=== PATIENT | female | born 1990 | race Caucasian/White ===

== ENCOUNTER 2020-10-10 16:58 | Emergency (ER) | payer MEDICAID, SELFPAY ==
[2020-10-10 17:02] VITALS: RESP 18; TEMP 36.7; O2SAT 100; BMI 32.4
[2020-10-10 17:06] VITALS: BP 146/80; PULSE 67
[2020-10-10] MEDS: 0.9 % Sodium Chloride 1,000 ML 1000 ML IV (18:31)
[2020-10-10] MEDS: ondansetron HCL 4 MG/2 ML VIAL IVPUSH ×2 (18:31→22:56)
[2020-10-10 18:42] VITALS: BP 144/77; PULSE 53; RESP 15; TEMP 37.3; O2SAT 99
[2020-10-10 18:50] LABS: MANUAL DIFF FLAG NO
[2020-10-10 18:57] LABS: Basophils Percent Auto 0.1 % (0-2); Hematocrit 42.7 % (37-47); Hemoglobin 15.6 g/dl (12.0-16.0); Imm Gran Abs Auto 0.06 X10*3/uL (0.00-0.03); Imm Gran Pct Auto 0.4 % (0.0-0.4); Lymphocytes Absolute Auto 1.9 X10*3/uL (1.2-4.9); Lymphocytes Percent Auto 13.4 % (20-40); Mean Corpuscular HGB Conc 36.5 g/dl (31.0-35.0); Mean Corpuscular Hemoglobin 31.6 pg (27.0-33.0); Mean Corpuscular Volume 86.4 fL (80-98); Mean Platelet Volume 9.6 fL (9.4-12.3); Monocytes Absolute Auto 0.6 X10*3/uL (0.1-1.2); Monocytes Percent Auto 4.5 % (2-11); Neutrophils Absolute Auto 11.5 X10*3/uL (2.0-8.3); Neutrophils Percent Auto 81.6 % (45-73); Platelet Count 376 X10*3/uL (160-400); Red Blood Count 4.94 X10*6/uL (4.20-5.50); Red Cell Distribution Width 11.8 % (11.0-16.0); White Blood Count 14.1 X10*3/uL (4.8-10.8)
[2020-10-10 19:13] LABS: Lactic Acid 1.1 mmol/L (0.5-2.0)
[2020-10-10 19:18] LABS: Alanine Aminotransferase 18 U/L (0-31); Albumin Level 4.8 g/dL (3.5-5.0); Alkaline Phosphatase 101 U/L (39-117); Anion Gap 17 (12-20); Aspartate Amino Transferase 11 U/L (5-31); Bilirubin Total 0.7 mg/dL (0.0-1.0); Blood Urea Nitrogen 19 mg/dL (9-16); Calcium 9.2 mg/dL (8.4-10.2); Carbon Dioxide 23 mmol/L (22-29); Chloride 105 mmol/L (96-108); Creatinine Clr Calc Pharmacy 66.2; Estimated Glomerular Filt Rate > 60; Glucose Random 105 mg/dL (60-115); Potassium 3.3 mmol/l (3.3-5.1); Sodium 142 mmol/L (135-145); Total Protein 8.3 g/dL (6.5-8.0)
--- NOTE | 2020-10-10 19:22 | CT_ITS ---
EXAMINATION: CT ABDOMEN AND PELVIS WITH CONTRAST CLINICAL INFORMATION: Abdominal pain. COMPARISON: CT abdomen and pelvis 12/02/2013. TECHNIQUE: Multidetector volumetric images were obtained from the superior aspect of the liver through the pubic symphysis following administration 85 mL of Omnipaque 350 intravenous contrast. Sagittal and coronal reformatted images were obtained on the technologist's workstation. Oral Contrast: No. This CT examination was performed using dose optimization techniques as appropriate, variously including the following: *Automated exposure control. *Adjustment of mA and/or kV according to patient size (this includes techniques or standardized protocols for targeted exams where dose is matched to indication/reason for exam; i.e. extremities or head). *Use of iterative reconstruction technique. DLP: 437 mGy-cm FINDINGS: LUNG BASES: The visualized lung bases are unremarkable. LIVER, GALLBLADDER, AND BILIARY TREE: The liver is normal in size, shape, and attenuation. No focal hepatic lesion or biliary ductal dilatation is present. The gallbladder is unremarkable with no evidence of radiopaque gallstones, gallbladder wall thickening, or obvious pericholecystic inflammatory changes. PANCREAS: Unremarkable. SPLEEN: Unremarkable. ADRENAL GLANDS: Unremarkable. KIDNEYS AND URETERS: The kidneys are normal in size, shape, and attenuation. No hydronephrosis, hydroureter, or calculi seen. No perinephric stranding. BLADDER: Empty and cannot be evaluated. GASTROINTESTINAL TRACT: Diverticular changes are present in the colon without evidence of diverticulitis. There is some submucosal fat deposition in the left and transverse colon which can sometimes be seen with prior colitis but this is a nonspecific finding. There is some minimally prominent loops of small bowel in the mid abdomen measuring only 2.6 cm in diameter without evidence of obstruction. The small and large bowel otherwise are unremarkable. The appendix is unremarkable. ABDOMINAL WALL: No significant hernia is appreciated. LYMPH NODES: Normal. VASCULAR: Unremarkable. The previously noted refluxing ovarian veins seen 6 years ago are smaller without significant reflux. PELVIC VISCERA: An anteverted uterus is present. An abnormal adnexal mass or free intraperitoneal fluid is not seen. OSSEOUS STRUCTURES: Unremarkable. CT/CT abdomen pelvis w con IMPRESSION: 1. A convincing abnormality to account for the patient's abdominal pain is not seen with certainty. There is some minimal dilatation of proximal small bowel which could be secondary to mild ileus. Submucosal fat deposition in colon is a non-specific finding as described above. Recommend clinical follow up and further evaluation, if symptoms worsen. 2. Incidentally noted colonic diverticula without diverticulitis.
[2020-10-10] MEDS: Acetaminophen 325 MG TABLET 975 MG PO (19:45)
--- NOTE | 2020-10-10 19:46 | PC.NURSE ---
Report taken from Ivan, this RN resuming care. Pt medicated with Tylenol per request for a DILLARD. Pt aware of UA but states she is unable to provide urine sample at this time, pt refusing to go to the bathroom, turning away from this RN in bed to sleep. VSS. Continue to monitor.
[2020-10-10 19:48] LABS: Influenza A PCR NEGATIVE (Negative); Influenza B PCR NEGATIVE (Negative); Resp Syncy Virus RNA Qual PCR NEGATIVE (Negative); SARS COV2 PCR INHOUSE NEGATIVE (Negative)
[2020-10-10 20:00] VITALS: BP 128/58; PULSE 58; RESP 16; TEMP 37.5; O2SAT 99
[2020-10-10 20:54] LABS: Glucose Urine UA NEG (NEG); Leukocyte Esterase Urine NEG (NEG); Nitrite Urine NEG (NEG); Specific Gravity - Urine >= 1.030 (1.005-1.025); Urine Blood 3+ (NEG); Urine Ketones 15 MG/DL (NEG); Urine Protein 2+ MG/DL (NEG-TRACE)
[2020-10-10 20:56] LABS: Appearance Urine CLEAR; Color Urine YELLOW
--- NOTE | 2020-10-10 20:57 | ED.NAVMDI ---
HPI - Nausea/Vomiting/Diarrhea General Chief complaint: Nausea/Vomiting/Diarrhea Stated complaint: flu like symptoms Time Seen by Provider: 10/10/20 17:11 Source: EMS Mode of arrival: EMS Limitations: no limitations History of Present Illness HPI Narrative: 30-year-old female with history of asthma, bipolar disorder and PTSD who presents via EMS with complaint of body aches for the past 2 days and abdominal pain with nausea and vomiting. States she is currently taking doxycycline for superficial skin infection her right axilla and right breast area that was given by her primary care doctor and she has been taking this well. Reports some rhinorrhea and diffuse abdominal pain with the associated nausea and vomiting. No sick contacts or travel. She does report to me that she had a negative COVID test 3 days ago. MD elicited complaint: nausea, vomiting, diarrhea and abdominal pain Description of diarrhea: loose Associated nausea: Yes Associated abdominal pain: Yes Location of pain: diffuse Radiation: diffuse Pain consistency: intermittent Severity: moderate Quality: cramping Relieving factors: none Associated symptoms: denies other symptoms Treatment prior to arrival: none Related Data Allergies Allergy/AdvReac Type Severity Reaction Status Date / Time aspirin [ASPIRIN] AdvReac Mild STOMACH Unverified 08/02/20 15:45 UPSET From COMPAZINE Allergy Unknown AGITATION Uncoded 08/02/20 15:45 Review of Systems Review of Systems: Constitutional: No Weight loss, No Fever, + Chills, No Night Sweats, No Fatigue, No Malaise ENT/Mouth: No Hearing loss, No Ear Pain, No Nasal Congestion, No Sinus Pain, No Hoarseness, No sore throat, No Rhinorrhea, No Swallowing Difficulty Eyes: No Eye Pain, No Swelling, No Redness, No Foreign Body, No Discharge, No Vision Changes Cardiovascular: No Chest Pain, No SOB, No Dyspnea on Exertion, No Orthopnea, No Edema, No Palpitations Respiratory: No Cough, No Sputum, No Wheezing, No Smoke Exposure, No Dyspnea Gastrointestinal: + Nausea, + Vomiting, + Diarrhea, No Constipation, + abdominal Pain, No Hematochezia, No Melena Genitourinary: no irregular bleeding, No Dysuria, No Urinary Frequency, No Hematuria, No Urinary Incontinence, No Urgency, No Flank Pain, No Urinary Flow Changes, No Hesitancy Musculoskeletal: No joint pain, No Myalgias, No Joint Swelling Skin: No Skin Lesions, No rash Neuro: No Weakness, No Numbness, No Paresthesias, No Loss of Consciousness, No Dizziness, No Headache Psych: No Social Issues Heme/Lymph: No Bruising, No Bleeding,No Lymphadenopathy Endocrine: No Polyuria, No Polydipsia, No Temperature Intolerance Gastrointestinal: Gastrointestinal: Reports nausea PMFSH Past Medical History Medical History Skin cancer Social History Social History Alcohol intake: unknown Smoking Status: Never smoker Use of substances other than those prescribed or required for medical reasons: No Advance Directives: No Advance Directives Information Provided: Yes Physical Exam Vital Signs: Vital Signs: Last Vital Signs Temp 99.5 F 10/10/20 20:00 Pulse 58 10/10/20 20:00 Resp 16 10/10/20 20:00 BP 128/58 L 10/10/20 20:00 Pulse Ox 99 10/10/20 20:00 Body Mass Index 32.4 Reviewed Const: General: cooperative and healthy appearing; No acute distress or intoxicated appearing Nutritional Appearance: average body habitus Orientation/consciousness: patient oriented x3 HENMT: Head: Yes normal to inspection Ears: hearing grossly normal bilaterally Eyes: General: appearance normal, both eyes and all related structures Visual [place]: normal visual zurita by confrontation Neck: Neck: Yes normal visual inspection and No tender Thyroid: Thyroid normal Chest: Chest palpation & inspection: normal inspection of the chest Resp: Effort & Inspection: normal respiratory effort Cardio: Jugular venous distension: no JVD GI: Inspection: Yes normal to inspection Percussion: Yes normal to percussion Auscultation: normal bowel sounds : General: Yes no CVA tenderness Back/Spine/Pelvis: Back: no CVA tenderness Skin: General skin exam: no rashes or lesions noted Neuro: General: patient oriented x3 Extrem: General: Yes normal to inspection MDM - Nausea/Vomiting/Diarrhea MDM Narrative Medical decision making narrative: Sign-out this time pending UA, abdominal CT. Anticipated to be discharged home. Differential Diagnosis Differential diagnosis: Likely food poisoning, gastroenteritis, drug-induced nausea and vomiting and dehydration; Unlikely traveler's diarrhea and clostridium difficile infection Medical Records Attestation: I reviewed the patient's medical records. Lab Data Attestation: I reviewed the patient's lab results. Result diagrams: 10/10/20 18:35 10/10/20 18:35 Labs: Lab Results 10/10/20 10/10/20 10/10/20 Range/Units 18:35 18:35 18:35 WBC 14.1 H (4.8-10.8) X10*3/uL RBC 4.94 (4.20-5.50) X10*6/uL Hgb 15.6 (12.0-16.0) g/dl Hct 42.7 (37-47) % MCV 86.4 (80-98) fL MCH 31.6 (27.0-33.0) pg MCHC 36.5 H (31.0-35.0) g/dl RDW 11.8 (11.0-16.0) % Plt Count 376 (160-400) X10*3/uL MPV 9.6 (9.4-12.3) fL Immature Gran % (Auto) 0.4 (0.0-0.4) % Neut % (Auto) 81.6 H (45-73) % Lymph % (Auto) 13.4 L (20-40) % [place] % (Auto) 4.5 (2-11) % Eos % (Auto) 0.0 (0-4) % Baso % (Auto) 0.1 (0-2) % Lymph # (Auto) 1.9 (1.2-4.9) X10*3/uL [place] # (Auto) 0.6 (0.1-1.2) X10*3/uL Eos # (Auto) 0.0 (0.0-0.4) X10*3/uL Baso # (Auto) 0.0 (0.0-0.2) X10*3/uL Abs Immat Gran (auto) 0.06 H (0.00-0.03) X10*3/uL Absolute Neuts (auto) 11.5 H (2.0-8.3) X10*3/uL Absolute Nucleated RBC 0.000 (0.0-0.012) X10*3/uL Nucleated RBC % (auto) 0.0 (0.0-0.2) /100WBC Sodium 142 (135-145) mmol/L Potassium 3.3 (3.3-5.1) mmol/l Chloride 105 (96-108) mmol/L Carbon Dioxide 23 (22-29) mmol/L Anion Gap 17 (12-20) BUN 19 H (9-16) mg/dL Creatinine 0.97 (0.5-1.4) mg/dL Estim Creat Clear Calc 66.2 Estimated GFR > 60 Random Glucose 105 (60-115) mg/dL Lactic Acid (0.5-2.0) mmol/L Calcium 9.2 (8.4-10.2) mg/dL Total Bilirubin 0.7 (0.0-1.0) mg/dL AST 11 (5-31) U/L ALT 18 (0-31) U/L Alkaline Phosphatase 101 (39-117) U/L Total Protein 8.3 H (6.5-8.0) g/dL Albumin 4.8 (3.5-5.0) g/dL Urine Color Urine Appearance Urine pH (5.0-8.0) Ur Specific [place] (1.005-1.025) Urine Protein (NEG-TRACE) MG/DL Urine Glucose (UA) (NEG) MG/DL Urine Ketones (NEG) MG/DL Urine Blood (NEG) Urine Nitrite (NEG) Ur Leukocyte Esterase (NEG) Coronavirus (PCR) NEGATIVE (Negative) Influenza Type A (PCR) NEGATIVE (Negative) Influenza Type B (PCR) NEGATIVE (Negative) RSV RNA Qual (PCR) NEGATIVE (Negative) 10/10/20 10/10/20 Range/Units 18:35 20:45 WBC (4.8-10.8) X10*3/uL RBC (4.20-5.50) X10*6/uL Hgb (12.0-16.0) g/dl Hct (37-47) % MCV (80-98) fL MCH (27.0-33.0) pg MCHC (31.0-35.0) g/dl RDW (11.0-16.0) % Plt Count (160-400) X10*3/uL MPV (9.4-12.3) fL Immature Gran % (Auto) (0.0-0.4) % Neut % (Auto) (45-73) % Lymph % (Auto) (20-40) % [place] % (Auto) (2-11) % Eos % (Auto) (0-4) % Baso % (Auto) (0-2) % Lymph # (Auto) (1.2-4.9) X10*3/uL [place] # (Auto) (0.1-1.2) X10*3/uL Eos # (Auto) (0.0-0.4) X10*3/uL Baso # (Auto) (0.0-0.2) X10*3/uL Abs Immat Gran (auto) (0.00-0.03) X10*3/uL Absolute Neuts (auto) (2.0-8.3) X10*3/uL Absolute Nucleated RBC (0.0-0.012) X10*3/uL Nucleated RBC % (auto) (0.0-0.2) /100WBC Sodium (135-145) mmol/L Potassium (3.3-5.1) mmol/l Chloride (96-108) mmol/L Carbon Dioxide (22-29) mmol/L Anion Gap (12-20) BUN (9-16) mg/dL Creatinine (0.5-1.4) mg/dL Estim Creat Clear Calc Estimated GFR Random Glucose (60-115) mg/dL Lactic Acid 1.1 (0.5-2.0) mmol/L Calcium (8.4-10.2) mg/dL Total Bilirubin (0.0-1.0) mg/dL AST (5-31) U/L ALT (0-31) U/L Alkaline Phosphatase (39-117) U/L Total Protein (6.5-8.0) g/dL Albumin (3.5-5.0) g/dL Urine Color YELLOW Urine Appearance CLEAR Urine pH 6.0 (5.0-8.0) Ur Specific [place] >= 1.030 H (1.005-1.025) Urine Protein 2+ H (NEG-TRACE) MG/DL Urine Glucose (UA) NEG (NEG) MG/DL Urine Ketones 15 (NEG) MG/DL Urine Blood 3+ H (NEG) Urine Nitrite NEG (NEG) Ur Leukocyte Esterase NEG (NEG) Coronavirus (PCR) (Negative) Influenza Type A (PCR) (Negative) Influenza Type B (PCR) (Negative) RSV RNA Qual (PCR) (Negative)
[2020-10-10 21:04] LABS: UPreg QC Valid YES; Urine Pregnancy NEGATIVE (NEGATIVE)
--- NOTE | 2020-10-10 21:07 | PC.NURSE ---
Pt continuously refusing to provide UA, pt states I am not , I had my tubes tied and I have my period right now. This RN explaining to pt that she was unable to have a CT until she provided a UA. Pt ambulating to the bathroom with a tomlinson/steady gait, needing to be constantly reminded to wear a mask while in the Covid unit. Awaiting CT.
[2020-10-10 21:10] LABS: Mucus Urine 2+ /LPF; WBC Urine 0-2 /HPF (0-4)
[2020-10-10] MEDS: iohexoL 350 MG/ML 100 ML INFUS..BTL IV (21:31)
[2020-10-10 22:00] VITALS: BP 133/69; PULSE 58; RESP 16; TEMP 37.5; O2SAT 99
--- NOTE | 2020-10-10 22:17 | PC.NURSE ---
Pt sleeping in bed at this time, aware of plan to await CT results.
[2020-10-10 22:32] VITALS: RESP 16
--- NOTE | 2020-10-10 22:49 | PC.NURSE ---
Pt calling this RN into the room, holding emesis bag out with vomit. Pt requesting nausea medication. PARBOILER aware, plan for DC home.
--- NOTE | 2020-10-10 22:56 | PC.NURSE ---
Pt medicated with Zofran per EMAR. Pt requesting medication to be discharged with for insomnia. Awaiting VP OF PRODUCT to explain results and plan of care.
--- NOTE | 2020-10-10 23:17 | PC.NURSE ---
SCRAP CRANE OPERATOR at bedside explaining results and plan to DC home.
--- NOTE | 2020-10-10 23:32 | PC.NURSE ---
Pt aware of plan, awaiting PA to consult with Dr Leal.
== END 2020-10-11 00:11 | disposition home or self-care (01) ==
PROVIDERS: Nurse Practitioner Primary Care; Emergency Provider Emergency Medicine
DX: F31.9 Bipolar disorder, unspecified (principal); Z20.828 Contact with and (suspected) exposure to other viral communicable diseases
CPT/HCPCS: 0241U; 36415; 74177; 80053; 81001; 81025; 83605; 85025; 87040; 87147; 96361; 96374; 96376; 99284; J2405; Q9967

== ENCOUNTER 2020-10-11 17:23 | Emergency (ER) | payer MEDICAID, SELFPAY ==
[2020-10-11 17:30] VITALS: BP 120/67; BP 120/85; PULSE 50; PULSE 55; RESP 18; TEMP 36.8; O2SAT 97; O2SAT 99; BMI 32.4
--- NOTE | 2020-10-11 17:43 | ED_ITS ---
HPI - Abdominal Pain General Chief Complaint: Abdominal Pain Stated Complaint: ABD PAIN,N/V,BLOOD IN STOOL Time Seen by Provider: 10/11/20 17:49 Source: patient Mode of arrival: EMS Limitations: no limitations History of Present Illness HPI narrative: Patient presents to the ED for abdominal pain, nausea, vomiting , and now blood in stool. Patient was seen here yesterday and CT scan showed possible ileus. Patient was informed if symptoms worsen to return to the ED. Patient states when she came to the ED yesterday did not have blood in stool, but now is having blood in stool. Patient denies any recent trauma to the abdomen, back, rectal, or pelvic area. Related Data Previous Rx's Medication Instructions Recorded diphenhydramine HCl [Allergy 25 mg PO TID PRN #30 cap 10/10/20 (diphenhydramine)] ciprofloxacin HCl [Cipro] 500 mg PO Q12H #14 tab 10/11/20 metronidazole 500 mg PO Q12H #14 tab 10/11/20 oxycodone-acetaminophen [Percocet] 1 tab PO TID PRN #9 tab 10/11/20 Allergies Allergy/AdvReac Type Severity Reaction Status Date / Time aspirin [ASPIRIN] AdvReac Mild STOMACH Verified 10/11/20 19:17 UPSET From COMPAZINE Allergy Unknown AGITATION Uncoded 10/11/20 19:18 Review of Systems Review of Systems Yes all other systems are reviewed and are negative Constitutional: Reports as per HPI and Reports no additional constitutional complaints Eyes: Reports as per HPI and Reports no additional eye complaints Reports system reviewed and no additional complaints, except as documented and Reports as per HPI Cardiovascular: Reports as per HPI and Reports no additional cardiovascular complaints Respiratory: Reports as per HPI and Reports no additional respiratory complaints Gastrointestinal: Reports no additional gastrointestinal complaints, Reports abdominal pain, Reports hematochezia, Reports nausea and Reports vomiting Genitourinary: Reports no additional female genitourinary complaints and Reports as per HPI Musculoskeletal: Reports no additional musculoskeletal complaints and Reports as per HPI Reports system reviewed and no additional complaints, except as documented and Reports as per HPI Psychiatric: Reports no additional psychiatric complaints and Reports as per HPI Physical Exam Vital Signs: Vital Signs: Last Vital Signs Temp 98.4 F 10/11/20 21:05 Pulse 55 10/11/20 21:05 Resp 15 10/11/20 21:50 BP 134/70 10/11/20 21:05 Pulse Ox 98 10/11/20 21:05 Body Mass Index 32.4 Const: General: cooperative, healthy appearing, well developed, alert, awake and acute distress Orientation/consciousness: patient oriented x3 HENMT: Head: Yes normal to inspection and Yes No palpable skull fracture present Eyes: General: appearance normal, both eyes and all related structures Neck: Neck: Yes normal visual inspection, Yes full ROM, Yes no lymphadenopathy, Yes no meningeal signs, Yes trachea midline, Yes supple and No tender Chest: Chest palpation & inspection: normal inspection of the chest, normal palpation of entire chest wall and no localized rib tenderness Resp: Effort & Inspection: normal respiratory effort and able to speak in complete sentences Auscultation: clear to auscultation bilaterally Cardio: Jugular venous distension: no JVD Heart sounds: S1 normal heart sound present and S2 normal heart sound present GI: Other: Rectal exam negative for any atul blood. Stool is brown Inspection: Yes normal to inspection, No abdominal wall ecchymosis, No Abdominal wall edema, No distended, No incision, No Abdominal panniculus present and No obesity Palpation (GI): Soft to palpation, not firm, Tenderness to palpation present (GI) in the LLQ and in the RLQ, no guarding and not rigid : General: No CVA tenderness and Yes no CVA tenderness Back/Spine/Pelvis: Back: no CVA tenderness, No CVA tenderness and No back tenderness Skin: General skin exam: no rashes or lesions noted Neuro: General: patient oriented x3, gait normal, no meningeal signs and CN's II-XI intact bilaterally Cranial nerves: Yes CN's II-XII intact bilaterally Extrem: General: Yes normal to inspection and Yes full ROM Psych: Appearance: grossly normal, well kempt and not disheveled Course Course Course Narrative: patient will have repeat of labs and also stool guaiac done. Patient also given pain medication and IV fluids. Due to now a change in stooling blood this may indicate colitis. Patient may need repeat CT scan. Possibly contacts surgeon on-call. Reevaluation(s) Reevaluation #1: stool guaiac came back positive. Patient abdomen is tender on palpation. Due to patient having worsening abdominal pain with blood in stool patient will have repeat CT scan to make sure there is no colitis, perforation, on small-bowel obstruction. consent was signed by me to have patient have repeat CT scan even though she had 1 yesterday, but once again due to change in history, symptoms, worsening abdominal pain. CT scan is warranted. Patient ziyad l be given IV fluids after CT scan. Time: 19:23 Reevaluation #2: CT scan shows Crohn's and also colitis. Patient will need ant ibiotics. Patient does not need admission. Patient is not septic. Received call from lab states patient's blood culture from yesterday came back Gram- positive cocci which is most likely contaminated staff, pending 2nd blood culture reading. patient is not toxic appearing. Patient or blood cell count improved from day before. Patient's potassium 2.9. Will give 60 mg oral and 10 mg IV. Time: 20:33 Reevaluation #3: spoke with hospitalist Dr. henderson concerning patient's positive gram positive clusters 1st blood culture and she states patient does not need to be admitted and can be discharged. And 2nd blood culture could be followed. She states patient presently is not septic. Checking potassium ordered. Time: 21:23 Additional Reevaluation(s): patient's repeat potassium improved. Patient is safe for discharge. MDM - Abdominal Pain MDM Narrative Medical decision making narrative: colitis. Lab Data Result diagrams: 10/11/20 17:52 10/11/20 21:31 Labs: Lab Results 10/11/20 10/11/20 10/11/20 Range/Units 17:52 17:52 17:52 WBC 12.7 H (4.8-10.8) X10*3/uL RBC 4.57 (4.20-5.50) X10*6/uL Hgb 14.5 (12.0-16.0) g/dl Hct 39.6 (37-47) % MCV 86.7 (80-98) fL MCH 31.7 (27.0-33.0) pg MCHC 36.6 H (31.0-35.0) g/dl RDW 11.9 (11.0-16.0) % Plt Count 338 (160-400) X10*3/uL MPV 8.9 L (9.4-12.3) fL Immature Gran % (Auto) 0.2 (0.0-0.4) % Neut % (Auto) 69.8 (45-73) % Lymph % (Auto) 23.4 (20-40) % [place] % (Auto) 6.3 (2-11) % Eos % (Auto) 0.1 (0-4) % Baso % (Auto) 0.2 (0-2) % Lymph # (Auto) 3.0 (1.2-4.9) X10*3/uL [place] # (Auto) 0.8 (0.1-1.2) X10*3/uL Eos # (Auto) 0.0 (0.0-0.4) X10*3/uL Baso # (Auto) 0.0 (0.0-0.2) X10*3/uL Abs Immat Gran (auto) 0.03 (0.00-0.03) X10*3/uL Absolute Neuts (auto) 8.9 H (2.0-8.3) X10*3/uL Absolute Nucleated RBC 0.000 (0.0-0.012) X10*3/uL Nucleated RBC % (auto) 0.0 (0.0-0.2) /100WBC PT 15.6 H (10.8-13.0) SEC INR 1.3 H (0.9-1.1) APTT 41.5 H (24.1-38.0) SEC Sodium 139 (135-145) mmol/L Potassium 2.9 L (3.3-5.1) mmol/l Chloride 99 (96-108) mmol/L Carbon Dioxide 28 (22-29) mmol/L Anion Gap 15 (12-20) BUN 15 (9-16) mg/dL Creatinine 0.93 (0.5-1.4) mg/dL Estim Creat Clear Calc 69.0 Estimated GFR > 60 Random Glucose 98 (60-115) mg/dL Calcium 9.6 (8.4-10.2) mg/dL Total Bilirubin 1.0 (0.0-1.0) mg/dL Direct Bilirubin 0.4 (0.0-0.5) mg/dL AST 11 (5-31) U/L ALT 15 (0-31) U/L Alkaline Phosphatase 88 (39-117) U/L Total Protein 7.5 (6.5-8.0) g/dL Albumin 4.5 (3.5-5.0) g/dL Lipase 25 (8-78) U/L Beta HCG, Quant < 2 mIU/mL Stool Occult Blood (NEG) 10/11/20 10/11/20 Range/Units 17:56 21:31 WBC (4.8-10.8) X10*3/uL RBC (4.20-5.50) X10*6/uL Hgb (12.0-16.0) g/dl Hct (37-47) % MCV (80-98) fL MCH (27.0-33.0) pg MCHC (31.0-35.0) g/dl RDW (11.0-16.0) % Plt Count (160-400) X10*3/uL MPV (9.4-12.3) fL Immature Gran % (Auto) (0.0-0.4) % Neut % (Auto) (45-73) % Lymph % (Auto) (20-40) % [place] % (Auto) (2-11) % Eos % (Auto) (0-4) % Baso % (Auto) (0-2) % Lymph # (Auto) (1.2-4.9) X10*3/uL [place] # (Auto) (0.1-1.2) X10*3/uL Eos # (Auto) (0.0-0.4) X10*3/uL Baso # (Auto) (0.0-0.2) X10*3/uL Abs Immat Gran (auto) (0.00-0.03) X10*3/uL Absolute Neuts (auto) (2.0-8.3) X10*3/uL Absolute Nucleated RBC (0.0-0.012) X10*3/uL Nucleated RBC % (auto) (0.0-0.2) /100WBC PT (10.8-13.0) SEC INR (0.9-1.1) APTT (24.1-38.0) SEC Sodium (135-145) mmol/L Potassium 3.7 D (3.3-5.1) mmol/l Chloride (96-108) mmol/L Carbon Dioxide (22-29) mmol/L Anion Gap (12-20) BUN (9-16) mg/dL Creatinine (0.5-1.4) mg/dL Estim Creat Clear Calc Estimated GFR Random Glucose (60-115) mg/dL Calcium (8.4-10.2) mg/dL Total Bilirubin (0.0-1.0) mg/dL Direct Bilirubin (0.0-0.5) mg/dL AST (5-31) U/L ALT (0-31) U/L Alkaline Phosphatase (39-117) U/L Total Protein (6.5-8.0) g/dL Albumin (3.5-5.0) g/dL Lipase (8-78) U/L Beta HCG, Quant mIU/mL Stool Occult Blood POS (NEG) Discharge Plan Discharge Clinical Impression: Colitis Patient Disposition: Home, Self-Care Instructions: Colitis (ED) Additional Instructions: Return to the ED for worsening abdominal pain, nausea, vomiting, fever, chills, blood in stool, or any other concerning symptoms. Prescriptions: New ciprofloxacin HCl [Cipro] 500 mg tablet 500 mg PO Q12H Qty: 14 RF: 0 metronidazole 500 mg tablet 500 mg PO Q12H Qty: 14 RF: 0 oxycodone-acetaminophen [Percocet] 5-325 mg tablet 1 tab PO TID PRN (Reason: pain) Qty: 9 RF: 0 No Action diphenhydramine HCl [Allergy (diphenhydramine)] 25 mg capsule 25 mg PO TID PRN (Reason: sleep) Qty: 30 RF: 0 Referrals: Antonio Bailey [Physician] - 2 days ( CT scan shows possible Crohn's.) Interventions: ED Discharge Assessment Last Done: 10/11/20 23:30 Discharge Date/Time: 10/11/20 23:31 Print Language: Mongolian [facility] Past Medical History Medical History Skin cancer Social History Social History Alcohol intake: never Smoking Status: Never smoker Use of substances other than those prescribed or required for medical reasons: Yes Substance Use Type: Marijuana Substance Use Frequency: Occasionally Advance Directives: No Advance Directives Information Provided: Yes
[2020-10-11] MEDS: 0.9 % Sodium Chloride 1,000 ML 999 ML IVCONT ×3 (17:53→21:54)
[2020-10-11 17:57] LABS: Basophils Percent Auto 0.2 % (0-2); Eosinophils Percent Auto 0.1 % (0-4); Hematocrit 39.6 % (37-47); Hemoglobin 14.5 g/dl (12.0-16.0); Imm Gran Abs Auto 0.03 X10*3/uL (0.00-0.03); Imm Gran Pct Auto 0.2 % (0.0-0.4); Lymphocytes Percent Auto 23.4 % (20-40); MANUAL DIFF FLAG NO; Mean Corpuscular HGB Conc 36.6 g/dl (31.0-35.0); Mean Corpuscular Hemoglobin 31.7 pg (27.0-33.0); Mean Corpuscular Volume 86.7 fL (80-98); Mean Platelet Volume 8.9 fL (9.4-12.3); Monocytes Absolute Auto 0.8 X10*3/uL (0.1-1.2); Monocytes Percent Auto 6.3 % (2-11); Neutrophils Absolute Auto 8.9 X10*3/uL (2.0-8.3); Neutrophils Percent Auto 69.8 % (45-73); Platelet Count 338 X10*3/uL (160-400); Red Blood Count 4.57 X10*6/uL (4.20-5.50); Red Cell Distribution Width 11.9 % (11.0-16.0); White Blood Count 12.7 X10*3/uL (4.8-10.8)
[2020-10-11] MEDS: Morphine Sulfate 2 MG/ML CARTRIDGE IVPUSH (17:57)
[2020-10-11 18:02] LABS: INTERNATIONAL NORM RATIO 1.3 (0.9-1.1); Prothrombin Time 15.6 SEC (10.8-13.0)
[2020-10-11 18:03] LABS: OBS Int Ctl Valid YES; OBS1 POS (NEG)
[2020-10-11 18:05] LABS: Partial Thromboplastin Time 41.5 SEC (24.1-38.0)
[2020-10-11 18:26] LABS: Alanine Aminotransferase 15 U/L (0-31); Albumin Level 4.5 g/dL (3.5-5.0); Alkaline Phosphatase 88 U/L (39-117); Anion Gap 15 (12-20); Aspartate Amino Transferase 11 U/L (5-31); Bilirubin Direct 0.4 mg/dL (0.0-0.5); Blood Urea Nitrogen 15 mg/dL (9-16); Calcium 9.6 mg/dL (8.4-10.2); Carbon Dioxide 28 mmol/L (22-29); Chloride 99 mmol/L (96-108); Estimated Glomerular Filt Rate > 60; Glucose Random 98 mg/dL (60-115); Lipase 25 U/L (8-78); Potassium 2.9 mmol/l (3.3-5.1); Sodium 139 mmol/L (135-145); Total Protein 7.5 g/dL (6.5-8.0)
[2020-10-11 18:28] LABS: HCG Quantitative < 2 mIU/mL
--- NOTE | 2020-10-11 19:07 | CT_ITS ---
EXAMINATION: CT abdomen pelvis w con CLINICAL INFORMATION: Reason for Exam abdominal pain. now blood is stool. colitis? Obstruction? COMPARISON: No prior CT available for comparison. TECHNIQUE: Multidetector volumetric imaging was performed from the superior aspect of the liver through the pubic symphysis 85 mL Omnipaque 350 injected. Sagittal and coronal reformatted images were obtained on the technologist's workstation. This CT examination was performed using dose optimization techniques as appropriate, variously including the following: *Automated exposure control *Adjustment of mA and/or kV according to patient size (this includes techniques or standardized protocols for targeted exams where dose is matched to indication/reason for exam; i.e. extremities or head) *Use of iterative reconstruction technique DLP: 1385 mGy-cm FINDINGS: LOWER THORAX: Included lung bases are clear. HEPATOBILIARY: No focal hepatic lesions. No biliary ductal dilatation. GALLBLADDER: Gallbladder unremarkable. SPLEEN: Spleen is normal in size. PANCREAS: No focal mass or ductal dilatation. STOMACH AND GASTROINTESTINAL TRACT: Stomach is grossly unremarkable. There is mild diffuse wall thickening of the renal: The attenuation of which is low, this is nonspecific however could be a sequela diffuse inflammation such as colitis. No CT evidence of appendicitis. No evidence of obstruction. There is however multiple short segments of small bowel which seem to be borderline dilated transitioning to normal diameter mid abdomen lower pelvis, refer image 59 series of 3, this is nonspecific however raise the possibility of inflammatory bowel disease Crohn's., ADRENALS: No adrenal nodules. KIDNEYS/URETERS: No hydronephrosis, stones or solid mass lesions. URINARY BLADDER: Partially decompressed. PELVIC VISCERA: Unremarkable PERITONEUM: No free air or fluid. LYMPH NODES: No lymphadenopathy. VASCULAR:Abdominal aorta normal in size, no aneurysm found. BONES, ABDOMINAL WALL AND SOFT TISSUES: Age-appropriate changes of the spine and skeletal system, no destructive osteolytic or osteosclerotic bone lesion found CT/CT abdomen pelvis w con IMPRESSION: There are few segments of small bowel which are borderline dilated followed by abrupt transition to normal diameter, Maria image, although nonspecific, this raise the possibility of inflammatory bowel disease Crohn's. There is also mild diffuse wall thickening of the colon, can be seen in patient with colitis. Clinical correlation and follow-up recommended. May consider follow-up outpatient barium small bowel series.
[2020-10-11] MEDS: Potassium Chloride ER 20 MEQ TAB.ER.PRT 60 MEQ PO (19:25)
[2020-10-11 19:41] VITALS: BP 140/67; PULSE 50; RESP 14; O2SAT 97
[2020-10-11] MEDS: iohexoL 350 MG/ML 100 ML INFUS..BTL IV (19:43)
[2020-10-11 21:05] VITALS: BP 134/70; PULSE 55; RESP 18; TEMP 36.9; O2SAT 98
[2020-10-11 21:50] VITALS: RESP 15
[2020-10-11] MEDS: Morphine Sulfate 4 MG/ML CARTRIDGE IVPUSH (21:50)
[2020-10-11 22:09] LABS: Potassium 3.7 mmol/l (3.3-5.1)
== END 2020-10-11 23:31 | disposition home or self-care (01) ==
PROVIDERS: Physician Assistant; Emergency Provider Emergency Medicine
DX: K52.9 Noninfective gastroenteritis and colitis, unspecified (principal); Z79.899 Other long term (current) drug therapy
CPT/HCPCS: 36415; 74177; 80053; 80076; 82248; 82272; 83690; 84132; 84702; 85025; 85610; 85730; 96361; 96365; 96375; 99284; J2270; Q9967

== ENCOUNTER 2021-01-29 01:19 | Emergency (ER) | payer MEDICAID, SELFPAY ==
[2021-01-29 01:29] VITALS: BP 113/75; BP 126/84; PULSE 80; PULSE 88; RESP 15; TEMP 36.6; O2SAT 100; O2SAT 98; BMI 31.4
--- NOTE | 2021-01-29 02:15 | PC.NURSE ---
Addendum entered by Karen Morgan 01/29/21 02:21: Patient left the hospital walking with steady gait at 1:55 on security video which was confirmed by security Original Note: Patient was not in her room when this senior grant writer came back from transporting a patient to floor. Patient seen on video leaving the hospital.
== END 2021-01-29 01:55 | disposition left against medical advice (07) ==
PROVIDERS: Emergency Provider Emergency Medicine
DX: R53.1 Weakness (principal); F11.90 Opioid use, unspecified, uncomplicated
CPT/HCPCS: 99283; 99284

== ENCOUNTER 2021-03-14 10:19 | Outpatient (REF) | payer MEDICAID, SELFPAY ==
[2021-03-14 10:53] LABS: COVID-19 Test Negative (Negative)
== END 2021-03-14 10:20 | disposition home or self-care (01) ==
LOC: HO.LAB 10:19
PROVIDERS: Visit Provider Internal Medicine
DX: Z20.822 Contact with and (suspected) exposure to COVID-19 (principal)
CPT/HCPCS: 36415; 87635; C9803

== ENCOUNTER 2021-03-18 13:24 | Outpatient (REF) | payer MEDICAID, SELFPAY ==
[2021-03-18 14:19] LABS: COVID-19 Test Negative (Negative); IDNOW Serial# 55D5AD1C
== END 2021-03-18 13:25 | disposition home or self-care (01) ==
LOC: HO.LAB 13:24
PROVIDERS: Visit Provider Internal Medicine
DX: Z20.822 Contact with and (suspected) exposure to COVID-19 (principal)
CPT/HCPCS: 36415; 87635; C9803

== ENCOUNTER 2021-05-15 12:34 | Outpatient (REF) | payer MEDICAID, SELFPAY ==
--- NOTE | ~2021-05-15 | XR_ITS ---
EXAMINATION: XR WRIST, RIGHT CLINICAL INFORMATION: Right wrist pain COMPARISON: None TECHNIQUE: PA, lateral, and oblique views of the right wrist. FINDINGS: The bones and soft tissues are normal. No fracture. Alignment is anatomic with normal joint spaces. No erosions or abnormal soft tissue calcifications. XR/XR wrist RT min 3V IMPRESSION: Unremarkable right wrist exam
== END 2021-05-15 12:35 | disposition home or self-care (01) ==
LOC: HO.XRAY 12:34
PROVIDERS: PCP Nurse Practitioner Family; Referring Provider Nurse Practitioner Family; Visit Provider Emergency Medicine
DX: M25.531 Pain in right wrist (principal)
CPT/HCPCS: 73110

== ENCOUNTER 2021-05-23 23:31 | Emergency (ER) | payer MEDICAID, SELFPAY ==
--- NOTE | ~2021-05-23 | CT_ITS ---
EXAMINATION: CT HEAD WITHOUT CONTRAST CLINICAL INFORMATION: Right-sided headache. Rule out bleed, stroke, mass effect. COMPARISON: 07/18/2020 TECHNIQUE: Contiguous axial imaging was performed from the skull base to vertex without intravenous contrast. This CT examination was performed using dose optimization techniques as appropriate, variously including the following: * Automated exposure control * Adjustment of mA and/or kV according to patient size (this includes techniques or standardized protocols for targeted exams where dose is matched to indication/reason for exam; i.e. extremities or head) Use of iterative reconstruction technique DLP: 677 mGy-cm. FINDINGS: There is no evidence of acute intracranial hemorrhage or territorial infarction. No abnormal mass effect or midline shift is seen. Navas to white matter differentiation is well preserved. No extra-axial fluid collections are identified. No hydrocephalus. No significant volume loss. There is no abnormal attenuation within the brain parenchyma. The osseous structures and soft tissues are normal. The mastoid air cells and visualized portions of the paranasal sinuses are well aerated. CT/CT head/brain wo con IMPRESSION: No acute intracranial pathology.
--- NOTE | 2021-05-23 23:45 | ED_ITS ---
HPI - General Adult General Chief complaint: General Medical Stated complaint: right side of face in pain Time Seen by Provider: 05/23/21 23:44 Source: patient Mode of arrival: ambulatory Limitations: no limitations History of Present Illness HPI narrative: 31-year-old female who presents emergency department for evaluation of right-sided facial pain and headache. She states that the pain started 2 days prior in her right ear. She states the pain then spread to her right jaw, right face and behind her right eye. She describes the pain as a constant, pressure-like pain which is 10/10 at its worst. She has had associated photophobia, phonophobia, nausea and vomiting. The patient states that she does have a history of migraine headaches but this headache is different than her migraine since her migraine is usually located diffusely throughout her head. She denied any dental pain. She denied any change in her hearing. She denied fever, chills, rhinorrhea, chest pain, shortness of breath or cough. Related Data Home Medications Medication Instructions Recorded Confirmed clonidine HCl 1 tab PO BID PRN 01/29/21 01/29/21 hydroxyzine HCl 1 tab PO DAILY PRN 01/29/21 01/29/21 Previous Rx's Medication Instructions Recorded promethazine 25 mg PO Q6H PRN #14 tab 05/24/21 Allergies Allergy/AdvReac Type Severity Reaction Status Date / Time aspirin [ASPIRIN] AdvReac Mild STOMACH Verified 05/23/21 23:51 UPSET From COMPAZINE Allergy Unknown AGITATION Uncoded 05/23/21 23:51 Review of Systems Review of Systems: Yes all other systems are reviewed and are negative [facility] Past Medical History [facility] Narrative: Past medical history: Skin cancer, hypoglycemia. Past s urgical history: x4, last 1 was 10 years prior. Bilateral tubal ligation social history: Patient denies tobacco use, she states she drinks alcohol rarely, she denies drug use. Medical History Skin cancer Social History Social History Alcohol intake: current Alcohol intake frequency: a few times a month Patient Tobacco Use Status: Current everyday Tobacco user Use of substances other than those prescribed or required for medical reasons: No Substance Use Type: Heroin Advance Directives: No Advance Directives Information Provided: No Patient : No Physical Exam Vital Signs: Vital Signs: Last Vital Signs Temp 97.8 F 05/24/21 00:44 Pulse 73 05/24/21 01:09 Resp 15 05/24/21 01:09 BP 119/75 05/24/21 01:09 Pulse Ox 96 05/24/21 01:09 Body Mass Index 32.4 Const: Other: Awake, alert, female, appears to be in moderate distress secondary to her pain. HENMT: Head: Yes normal to inspection, Yes normocephalic and Yes atraumatic Ears: external ears normal General nose exam: Normal external nose present Face and sinus: Yes normal facial exam Mouth: Normal oral and palatal mucosa present Throat: Yes posterior oropharynx normal Eyes: Periorbital: periorbital findings normal Eyelids: Yes eyelids normal Conjunctivae: conjunctivae normal Sclerae: sclerae normal Corneas: corneas normal Pupils: Equal, round and reactive pupils present Direct Ophthalmoscopy: normal light reflex Neck: Neck: Yes full ROM, Yes no lymphadenopathy, Yes no meningeal signs, Yes trachea midline and Yes supple Chest: Chest palpation & inspection: normal inspection of the chest and normal palpation of entire chest wall Resp: Effort & Inspection: normal respiratory effort and able to speak in complete sentences Auscultation: clear to auscultation bilaterally Cardio: Rate: regular rate Rhythm: regular rhythm Heart sounds: S1 normal heart sound present, S2 normal heart sound present and no murmurs GI: Inspection: Yes normal to inspection Palpation (GI): Soft to palpation, nontender, no guarding, not rigid and No hepatosplenomegaly present : General: Yes no CVA tenderness Back/Spine/Pelvis: Back: no CVA tenderness Cervical Spine: normal cervical lordosis Thoracic/Lumbar Spine: thoracic and lumbar spine normal to inspection Skin: Lesions: no lesions Rashes: no rashes Wounds: no wounds Neuro: General: no meningeal signs Cranial nerves: Yes CN's II-XII intact bilaterally and Yes Equal, round and reactive pupils present Cognition (Neuro): normal cognition Motor exam (neuro): 5/5 motor strength present throughout Extrem: General: Yes normal to inspection and Yes full ROM Psych: Appearance: well kempt Mental Status: mental status grossly normal Speech and movement: Normal speech and movement present Affect: normal affect Course Course Course Narrative: 31-year-old female who presents emergency department for evaluation of right ear, right jaw and right-sided head pain x2 days. Patient's physical examination was unremarkable. My impression is that the patient is having a migraine syndrome which is different than her usual migraine. I do not think that she has a subarachnoid hemorrhage, meningitis, or temporal arteritis as the cause of her pain. Patient's pain will be treated with Reglan 10 mg orally, Benadryl 50 mg orally and Toradol 30 mg IV. She was also ordered to g et normal saline x1 L IV. 0131: The patient got only minimal relief with the above treatment. She was given morphine 4 mg IV x2 with some improvement. The patient had a CT scan of the head without IV contrast which revealed no acute process. At this time, I still believe that the patient has an acute migraine syndrome. She will be discharged home with the following migraine regimen: Phenergan 25 mg orally, Benadryl 50 mg orally, ibuprofen 600 mg orally. The patient was given verbal and printed instructions prior to discharge. The patient was advised to follow- up with their PCP in 2 days and to return to the emergency department if their symptoms get worse or if they develop any new symptoms that are concerning to them . Discharge Plan Discharge Clinical Impression: Migraine Qualifiers: Migraine type: without aura Status migrainosus presence: without status migrainosus Intractability: not intractable Qualified Code(s): G43.009 - Migraine without aura, not intractable, without status migrainosus Patient Disposition: Home, Self-Care Instructions: Migraine Headache (ED) Additional Instructions: The CT scan of your head was normal which is reassuring. At this time, I believe that your pain is caused by a migraine-like headache. Take the following 3 medications together every 6 hours as needed for pain. Phenergan 25 mg pills, 1 pill orally Benadryl 25 mg pills, 2 pills orally Ibuprofen 200 mg pills, 3 pills orally. These medications make you sleepy, you should lie down in a dark quiet room after taking these medications to help the headache go away. Follow-up with your doctor in 2 days. Please return to the emergency department if your symptoms get worse or if you develop any symptoms that are concerning to you. Prescriptions: New promethazine 25 mg tablet 25 mg PO Q6H PRN (Reason: headache, nausea, vomiting) Qty: 14 RF: 0 No Action clonidine HCl 0.1 mg tablet 1 tab PO BID PRN (Reason: anxiety) RF: 0 hydroxyzine HCl 25 mg tablet 1 tab PO DAILY PRN (Reason: anxiety) RF: 0
[2021-05-23 23:46] VITALS: BP 140/85; PULSE 75; RESP 16; TEMP 36.7; O2SAT 97; BMI 32.4
[2021-05-23 23:52] VITALS: BP 151/82; PULSE 75; RESP 16; O2SAT 96
[2021-05-24] MEDS: 0.9 % Sodium Chloride 1,000 ML 999 ML IV (00:02)
[2021-05-24] MEDS: diphenhydrAMINE HCL 50 MG/ML VIAL IVPUSH (00:04)
[2021-05-24] MEDS: Ketorolac Tromethamine 30 MG/ML VIAL IVPUSH (00:04)
[2021-05-24] MEDS: Metoclopramide HCl 10 MG/2 ML VIAL IVPUSH (00:04)
[2021-05-24 00:44] VITALS: BP 116/70; PULSE 74; RESP 16; TEMP 36.6; O2SAT 100
[2021-05-24 01:09] VITALS: BP 119/75; PULSE 73; RESP 15; O2SAT 96
[2021-05-24] MEDS: Morphine Sulfate 4 MG/ML CARTRIDGE IVPUSH ×2 (01:10→01:38)
[2021-05-24 01:57] VITALS: BP 125/59; PULSE 79; RESP 16; O2SAT 97
== END 2021-05-24 02:06 | disposition home or self-care (01) ==
PROVIDERS: Emergency Provider Emergency Medicine Emergency Medical Services
DX: G43.009 Migraine without aura, not intractable, without status migrainosus (principal)
CPT/HCPCS: 70450; 96361; 96374; 96375; 96376; 99284; J1200; J1885; J2270; J2765

== ENCOUNTER 2021-06-20 05:31 | Emergency (ER) | payer MEDICAID, SELFPAY ==
[2021-06-20 05:54] VITALS: BP 132/76; PULSE 105; RESP 20; TEMP 36.9; O2SAT 98; BMI 31.3
[2021-06-20 06:07] LABS: Appearance Urine CLOUDY; Color Urine YELLOW; Glucose Urine UA NEG (NEG); Leukocyte Esterase Urine 2+ (NEG); Nitrite Urine NEG (NEG); Specific Gravity - Urine 1.025 (1.005-1.025); UACC Culture Trigger YES; UPreg QC Valid YES; Urine Blood 3+ (NEG); Urine Ketones NEG (NEG); Urine Pregnancy NEGATIVE (NEGATIVE); Urine Protein 2+ MG/DL (NEG-TRACE)
[2021-06-20 06:12] LABS: Bacteria Urine 2+ /LPF; Squamous Epithelial Cell Urine 1+ /LPF; WBC Urine TNTC /HPF (0-4)
--- NOTE | 2021-06-20 06:38 | ED.FEMALEGU ---
HPI - Female Genitourinary General Chief complaint: Urogenital-Female Stated complaint: UTI? Time Seen by Provider: 06/20/21 06:27 Source: patient Mode of arrival: ambulatory Limitations: no limitations History of Present Illness MD elicited complaint: dysuria and UTI Pertinent past history: recurrent UTIs Onset (ago): hour(s) (3) Location of symptoms: suprapubic Severity: moderate Quality of pain: cramping and burning Consistency: intermittent Vaginal discharge: none Vaginal bleeding: none Urinary symptoms: Dysuria, Urgency, Frequency and Difficulty Urinating Exacerbating factors: urination Relieving factors: none Associated symptoms: denies other symptoms Treatment prior to arrival: none Sexual activity: No Patient : No Related Data Home Medications Medication Instructions Recorded Confirmed clonidine HCl 0.1 mg tablet 1 tab PO BID PRN 01/29/21 01/29/21 hydroxyzine HCl 25 mg tablet 1 tab PO DAILY PRN 01/29/21 01/29/21 Previous Rx's Medication Instructions Recorded promethazine 25 mg tablet 25 mg PO Q6H PRN #14 tab 05/24/21 cefuroxime axetil 500 mg tablet 500 mg PO BID 7 Days #14 tab 06/20/21 fluconazole 150 mg tablet 150 mg PO DAILY #1 tab 06/20/21 (Diflucan) phenazopyridine 100 mg tablet 100 mg PO TID PRN #6 tab 06/20/21 (Pyridium) Allergies Allergy/AdvReac Type Severity Reaction Status Date / Time aspirin [ASPIRIN] AdvReac Mild STOMACH Verified 06/20/21 05:57 UPSET From COMPAZINE Allergy Unknown AGITATION Uncoded 06/20/21 05:57 Review of Systems Review of Systems: Constitutional : No Weight loss, No Fever, No Chills, No Fatigue, No Malaise ENT/Mouth : No sore throat, No Rhinorrhea Eyes: No Eye Pain, No Swelling, No Redness Cardiovascular : No Chest Pain, No SOB, No Dyspnea on Exertion, No Orthopnea, No Edema, No Palpitations Respiratory : No Cough, No Sputum, No Wheezing Gastrointestinal : No Nausea, No Vomiting, No Diarrhea, No Constipation, No abdominal Pain, No Hematochezia, No Melena Genitourinary : pos Dysuria, pos Urinary Frequency, pos Hematuria, Musculoskeletal : No joint pain, No Myalgias, No Joint Swelling Skin : No Skin Lesions, No rash Neuro : No Weakness, No Numbness, No Dizziness, No Headache Psych : No Anxiety/Panic, No Depression [facility] Past Medical History Attestation statement: The following information was validated with the patient. Medical History (Updated 06/20/21 @ 06:59 by Kaykay Herrmann DO) Skin cancer Urinary tract infection Social History Social History Alcohol intake: current Alcohol intake frequency: a few times a month Patient Tobacco Use Status: Current everyday Tobacco user Substance Use Type: Heroin Advance Directives: No Advance Directives Information Provided: Yes Patient : No Physical Exam Vital Signs: Vital Signs: Last Vital Signs Temp 98.4 F 06/20/21 05:54 Pulse 105 H 06/20/21 05:54 Resp 20 06/20/21 05:54 BP 132/76 06/20/21 05:54 Pulse Ox 98 06/20/21 05:54 Body Mass Index 31.3 Appearance: Alert. Oriented X3. No acute distress. Eyes: Pupils equal, round and reactive to light. ENT: Pharynx normal. Neck: Normal inspection. Neck supple. CVS: Normal heart rate and rhythm. Pulses normal. Respiratory: No respiratory distress. Breath sounds normal. Abdomen: Soft and suprapubic mild ttp no rebound or guarding, no CVA ttp Skin: Skin warm and dry. Normal skin color. Normal skin turgor. Extremities: No lower extremity edema. Neuro: Oriented X 3. No motor deficit. No sensory deficit. MDM - Female Genitourinary MDM Narrative Medical decision making narrative: 31 yo female with recurrent UTIs no prior stones, comes in with burning and pelvic pain with urination - no flank pain/n/v / fevers - states this is typical for her UTIs at this time will start on abx, pyridium, given precautions to return given recurrence and typical event for her doubt renal colic Lab Data Labs: Lab Results 06/20/21 06/20/21 Range/Units 06:01 06:01 Urine Color YELLOW Urine Appearance CLOUDY Urine pH 6.0 (5.0-8.0) Ur Specific [place] 1.025 (1.005-1.025) Urine Protein 2+ H (NEG-TRACE) MG/DL Urine Glucose (UA) NEG (NEG) MG/DL Urine Ketones NEG (NEG) MG/DL Urine Blood 3+ H (NEG) Urine Nitrite NEG (NEG) Ur Leukocyte Esterase 2+ H (NEG) Urine RBC 76-150 H (0) /HPF Urine WBC TNTC H (0-4) /HPF Ur Squamous Epith Cells 1+ /LPF Urine Bacteria 2+ /LPF Urine Test NEGATIVE (NEGATIVE) Discharge Plan Discharge Clinical Impression: Urinary tract infection Qualifiers: Urinary tract infection type: acute cystitis Hematuria presence: with hematuria Qualified Code(s): N30.01 - Acute cystitis with hematuria Patient Disposition: Home, Self-Care Instructions: Urinary Tract Infection in Women (ED) Additional Instructions: return to ED for any worsening symptoms or concerns Prescriptions: New phenazopyridine [Pyridium] 100 mg tablet 100 mg PO TID PRN (Reason: pain) Qty: 6 RF: 0 cefuroxime axetil 500 mg tablet 500 mg PO BID 7 Days Qty: 14 RF: 0 fluconazole [Diflucan] 150 mg tablet 150 mg PO DAILY Qty: 1 RF: 0 No Action clonidine HCl 0.1 mg tablet 1 tab PO BID PRN (Reason: anxiety) RF: 0 hydroxyzine HCl 25 mg tablet 1 tab PO DAILY PRN (Reason: anxiety) RF: 0 promethazine 25 mg tablet 25 mg PO Q6H PRN (Reason: headache, nausea, vomiting) Qty: 14 RF: 0 Referrals: [facility] [Primary Care Provider] - 2 days (if not better) Stand Alone Forms: Work/School Release
[2021-06-20] MEDS: Acetaminophen 325 MG TABLET 650 MG PO (06:40)
--- NOTE | 2021-06-20 06:43 | PC.NURSE ---
at bedside for primary eval. Pt refusing Tylenol at this time, MD encouraging pt to take Tylenol. Pt yelling out at nursing and .
[2021-06-20] MEDS: Phenazopyridine HCL 200 MG TABLET PO (06:46)
== END 2021-06-20 07:12 | disposition home or self-care (01) ==
PROVIDERS: Emergency Provider Emergency Medicine
DX: N30.01 Acute cystitis with hematuria (principal); R30.0 Dysuria; F11.90 Opioid use, unspecified, uncomplicated; F17.200 Nicotine dependence, unspecified, uncomplicated; Z71.6 Tobacco abuse counseling; Z79.899 Other long term (current) drug therapy
CPT/HCPCS: 81001; 81025; 87086; 87088; 87186; 99283

== ENCOUNTER 2022-04-17 11:43 | Emergency (ER) | payer MEDICAID, SELFPAY ==
--- NOTE | ~2022-04-17 | CT_ITS ---
EXAMINATION: NONCONTRAST HEAD CT NONCONTRAST MAXILLOFACIAL CT NONCONTRAST CERVICAL SPINE CT INDICATION INFORMATION: Fall with head/facial/neck injury. COMPARISON: 05/24/2021 TECHNIQUE: Separate noncontrast CT examinations of the head, maxillofacial bones, and cervical spine were performed. Coronal and sagittal images were created for each examination at the technologist workstation. This CT examination was performed using dose optimization techniques as appropriate, variously including the following: *Automated exposure control *Adjustment of mA and/or kV according to patient size (this includes techniques or standardized protocols for targeted exams where dose is matched to indication/reason for exam; i.e. extremities or head) *Use of iterative reconstruction technique DLP: 1509 mGy-cm FINDINGS: Head: There is no evidence of acute intracranial hemorrhage or territorial infarction. No abnormal mass effect or midline shift is seen. Navas to white matter differentiation is well preserved. No extra-axial fluid collections are identified. No hydrocephalus. No significant volume loss. There is no abnormal attenuation within the brain parenchyma. No acute soft tissue abnormality. No calvarial fracture. The mastoid air cells are well aerated. Maxillofacial: No acute maxillofacial fractures are seen. The pterygoid plates are intact. Lamina papyracea are intact. The zygomatic arches are intact. The nasal bone is intact. The orbital rims are intact. The mandible is intact. The frontal, maxillary, ethmoid, and sphenoid sinuses are well aerated. The uncinate process is normal bilaterally. The infundibula and middle meati are patent. The nasal septum is midline. The mandibular heads are well-seated in the condylar fossa. The orbits demonstrate a normal appearance bilaterally. The globes are intact, and there are no suspicious findings to suggest retrobulbar hemorrhage. Cervical spine: There is anatomic alignment of the vertebral bodies and posterior elements. The atlantoaxial and atlantooccipital articulations are intact. Vertebral body heights and intervertebral disc spaces are maintained. No evidence of acute fracture. No prevertebral soft tissue swelling. Visualized portions of the lung apices are unremarkable. The thyroid gland is unremarkable. CT/CT cervical spine wo con IMPRESSION: 1. No acute intracranial finding. 2. No fracture or malalignment of the cervical spine. 3. No maxillofacial fracture.
--- NOTE | ~2022-04-17 | XR_ITS ---
EXAMINATION: XR RIBS, BILATERAL CLINICAL INFORMATION: Bilateral rib pain after fall COMPARISON: 07/18/2020 TECHNIQUE: 3 views of the bilateral ribs were obtained. PA view of the chest. FINDINGS: Lungs are clear. No consolidation, pneumothorax, or pleural effusion. The cardiomediastinal silhouette and pulmonary vasculature are normal. Osseous structures are unremarkable. Ribs are intact. No fractures are identified. XR/XR ribs BI min 4V w CXR1V IMPRESSION: Clear lungs. Unremarkable appearance of the ribs bilaterally.
[2022-04-17 12:00] VITALS: BP 139/75; PULSE 83; RESP 16; TEMP 36.9; O2SAT 97; BMI 31.5
--- NOTE | 2022-04-17 15:13 | ED.FALL ---
HPI - Fall General Chief Complaint: Fall Stated Complaint: r rib pain, Time Seen by Provider: 04/17/22 13:30 Source: patient and family Mode of arrival: ambulatory Limitations: no limitations History of Present Illness HPI Narrative: 32-year-old female presenting to the ED with complaints of head/facial and chest wall/rib cage pain after she was walking her dogs and they started running to vira another dog and she tried to hold onto them although they pulled her and she fell straight onto her face/ head/ chest and since then she has been having pain. She denies loss of consciousness or prolonged down time or being on any blood thinners. She denies any other extremity pain. She denies any other injuries complaints or concerns at this time. complaint: fall Onset (ago): day(s) ( few days ago) Fall from: standing Fall witnessed: no Place fall occurred: street Loss of consciousness: none Prolonged down time: no Symptoms prior to fall: none Context: tripped/slipped Location of injury: head, face and chest Severity: moderate Quality: aching, spasming and throbbing Related Data Home Medications Medication Instructions Recorded Confirmed clonidine HCl 0.1 mg tablet 1 tab PO BID PRN 01/29/21 01/29/21 hydroxyzine HCl 25 mg tablet 1 tab PO DAILY PRN 01/29/21 01/29/21 Previous Rx's Medication Instructions Recorded promethazine 25 mg tablet 25 mg PO Q6H PRN #14 tab 05/24/21 cefuroxime axetil 500 mg tablet 500 mg PO BID 7 Days #14 tab 06/20/21 fluconazole 150 mg tablet 150 mg PO DAILY #1 tab 06/20/21 (Diflucan) phenazopyridine 100 mg tablet 100 mg PO TID PRN #6 tab 06/20/21 (Pyridium) acetaminophen 300 mg-codeine 30 mg 1 tab PO Q8H PRN #10 tab 04/17/22 tablet cyclobenzaprine 10 mg tablet 10 mg PO Q8H PRN #14 tab 04/17/22 Allergies Allergy/AdvReac Type Severity Reaction Status Date / Time aspirin [ASPIRIN] AdvReac Mild STOMACH Verified 06/20/21 05:57 UPSET From COMPAZINE Allergy Unknown AGITATION Uncoded 06/20/21 05:57 Review of Systems Review of Systems: Constitutional : No Fever, No Chills ENT/Mouth : No Ear Pain, No Hoarseness, No sore throat Eyes: No Eye Pain, No Swelling, No Redness, No Foreign Body Cardiovascular : No Chest Pain, No SOB Respiratory : No Cough, No Dyspnea Gastrointestinal : No Nausea, No Vomiting, No Diarrhea, No abdominal Pain Genitourinary : No Dysuria, No Hematuria Musculoskeletal : + facial pain/anterior chest wall/rib cage pain, No joint pain, No Myalgias, No Joint Swelling Skin : No Skin lacerations, No rash Neuro : + Head injury, No Weakness, No Numbness, No Paresthesias, No Loss of Consciousness, No Dizziness, No Headache Psych : No Anxiety/Panic, No Depression Heme/Lymph: no easy bruising, no Lymphadenopathy Endocrine : No Polyuria, No Polydipsia Yes all other systems are reviewed and are negative FORMERLY [facility], [facility]–1983 Past Medical History Attestation statement: The following information was validated with the patient. Medical History Skin cancer Urinary tract infection Social History Social History Alcohol intake: current Alcohol intake frequency: a few times a month Patient Tobacco Use Status: Current everyday Tobacco user Substance Use Type: Heroin Advance Directives: No Advance Directives Information Provided: No Physical Exam Vital Signs: Vital Signs: Last Vital Signs Temp 98.4 F 04/17/22 12:00 Pulse 83 04/17/22 12:00 Resp 16 04/17/22 12:00 BP 139/75 04/17/22 12:00 Pulse Ox 97 04/17/22 12:00 BMI result Body Mass Index 31.5 vital signs have been reviewed as normal and appeared to be correct. Blood pressure normal. Heart rate normal. Respiration rate normal. Temperature normal. Oxygen saturation normal. Appearance: Alert. Oriented X3. No acute distress. Head: Normal external exam. Normocephalic. Atraumatic. No Olivera signs noted. No raccoon eyes noted Eyes: PERRLA. EOMI. Conjunctiva and sclera normal. Eyelids normal. ENT: EAC normal. TM's Normal. No septal hematoma noted. No hemotympanum noted. Pharynx normal. Uvula midline. Moist mucous membranes. No lesions/ulcerations or masses noted on the tongue. Normal voice. No trismus noted. No drooling noted. No muffled voice noted. Neck: Normal inspection. Neck supple. FROM. No adenopathy. Thyroid Normal. No tracheal deviation noted. No crepitus is noted. No meningeal signs. No neck mass noted. No signs of trauma noted. CVS: Normal heart rate and rhythm. Heart sound normal. Pulses normal throughout. No murmurs/rales/gallops. Respiratory: No respiratory distress. Painless inspiration. Breath sounds normal. No wheezes/rales/rhonchi noted. Chest mild ttp to anterior chest wall/rib cage pain. No crepitus is noted. No signs of trauma noted. No accessory muscle usage noted or decreased air movement noted. No signs of trauma. Abdomen: Soft and nontender. Bowel sounds normal in all 4 quadrants. No distention noted. No organomegaly noted. No visible injury noted. Back: No CVA tenderness. Full range of motion noted. Nontender. No signs of trauma. Patient neuro intact bilaterally and distally on all 4 extremities. Patient's reflexes intact bilaterally and distally on all 4 extremities. No rashes/lesion/induration/fluctuance or signs of infection noted. Skin: Skin warm and dry. Normal skin color. Normal skin turgor. No rashes/lesions/lacerations noted. Extremities: No lower extremity edema. No calf tenderness is noted. Extremities exhibit normal range of motion and nontender. Neuro: Oriented X 3. No motor deficit. No sensory deficit. Reflexes normal. Normal steady gait. No focal neuro deficits noted. CN's II-XII intact bilaterally? Vascular: + radial pulses/+ 2 distal pedal pulses/+2 dorsalis pedis b/l. Normal cap refill. No cyanosis noted to upper extremity nails and lower extremity toes nails. Course Course Course Narrative: CT scan of brain/ cervical spine/facial bone negative for any acute processes. X-rays of ribs and chest negative for any acute processes. Patient most likely muscular skeletal pain. Will DC home with symptomatic treatment instructions return if any new or worsening symptoms follow up with primary care provider. Patient understands agrees with this plan. MDM - Fall Medical Records Attestation: I reviewed the patient's medical records. Imaging Data CT scan of brain /cervical spine/facial bones without contrast: Attestation: I personally reviewed and interpreted this imaging study as follows: Radiologist's impression: FINDINGS: Head: There is no evidence of acute intracranial hemorrhage or territorial infarction. No abnormal mass effect or midline shift is seen. Navas to white matter differentiation is well preserved. No extra-axial fluid collections are identified. No hydrocephalus. No significant volume loss. There is no abnormal attenuation within the brain parenchyma. No acute soft tissue abnormality. No calvarial fracture. The mastoid air cells are well aerated. Maxillofacial: No acute maxillofacial fractures are seen. The pterygoid plates are intact. Lamina papyracea are intact. The zygomatic arches are intact. The nasal bone is intact. The orbital rims are intact. The mandible is intact. The frontal, maxillary, ethmoid, and sphenoid sinuses are well aerated. The uncinate process is normal bilaterally. The infundibula and middle meati are patent. The nasal septum is midline. The mandibular heads are well-seated in the condylar fossa. The orbits demonstrate a normal appearance bilaterally. The globes are intact, and there are no suspicious findings to suggest retrobulbar hemorrhage. Cervical spine: There is anatomic alignment of the vertebral bodies and posterior elements. The atlantoaxial and atlantooccipital articulations are intact. Vertebral body heights and intervertebral disc spaces are maintained.? No evidence of acute fracture. No prevertebral soft tissue swelling. Visualized portions of the lung apices are unremarkable. The thyroid gland is unremarkable. CT/CT head/brain wo con IMPRESSION: ? 1. No acute intracranial finding. 2. No fracture or malalignment of the cervical spine. 3. No maxillofacial fracture. ribs with chest x-ray: Attestation: I personally reviewed and interpreted this imaging study as follows: Radiologist's impression: FINDINGS: Lungs are clear. No consolidation, pneumothorax, or pleural effusion. The cardiomediastinal silhouette and pulmonary vasculature are normal. Osseous structures are unremarkable. Ribs are intact. No fractures are identified. XR/XR ribs BI min 4V w CXR1V IMPRESSION: Clear lungs. Unremarkable appearance of the ribs bilaterally. Discharge Plan Discharge Clinical Impression: Fall, Head injury, Facial injury, Rib pain Patient Disposition: Home, Self-Care Instructions: Muscle Strain (ED) Prescriptions: New cyclobenzaprine 10 mg tablet 10 mg PO Q8H PRN (Reason: Muscle spasm) Qty: 14 0RF acetaminophen-codeine 300-30 mg tablet 1 tab PO Q8H PRN (Reason: pain) Qty: 10 0RF No Action clonidine HCl 0.1 mg tablet 1 tab PO BID PRN (Reason: anxiety) 0RF hydroxyzine HCl 25 mg tablet 1 tab PO DAILY PRN (Reason: anxiety) 0RF promethazine 25 mg tablet 25 mg PO Q6H PRN (Reason: headache, nausea, vomiting) Qty: 14 0RF phenazopyridine [Pyridium] 100 mg tablet 100 mg PO TID PRN (Reason: pain) Qty: 6 0RF cefuroxime axetil 500 mg tablet 500 mg PO BID 7 Days Qty: 14 0RF fluconazole [Diflucan] 150 mg tablet 150 mg PO DAILY Qty: 1 0RF Referrals: [facility] [Primary Care Provider] - 2 days
== END 2022-04-17 16:05 | disposition home or self-care (01) ==
PROVIDERS: Emergency Provider Emergency Medicine
DX: S09.90XA Unspecified injury of head, initial encounter (principal); S09.93XA Unspecified injury of face, initial encounter; R07.81 Pleurodynia; W18.39XA Other fall on same level, initial encounter; Y93.K1 Activity, walking an animal; Y92.410 Unspecified street and highway as the place of occurrence of the external cause; Y99.9 Unspecified external cause status
CPT/HCPCS: 70450; 70486; 71111; 72125; 99283; 99284

== ENCOUNTER 2022-08-01 12:57 | Outpatient (REF) | payer MEDICAID, SELFPAY ==
--- NOTE | ~2022-08-01 | XR_ITS ---
EXAMINATION: XR ELBOW, RIGHT CLINICAL INFORMATION: Pain and effusion right elbow COMPARISON: None TECHNIQUE: AP, lateral, and oblique views of the right elbow. FINDINGS: No acute visible fracture or dislocation. Joint spaces and alignment are maintained. No large elbow joint effusion. Soft tissues are unremarkable. XR/XR elbow RT min 3V IMPRESSION: No acute visible fracture or dislocation.
[2022-08-01 14:10] LABS: MANUAL DIFF FLAG NO
[2022-08-01 14:41] LABS: Basophils Percent Auto 0.5 % (0-2); Eosinophils Absolute Auto 0.4 X10*3/uL (0.0-0.4); Eosinophils Percent Auto 4.4 % (0-4); Hematocrit 39.5 % (37.0-47.0); Hemoglobin 13.4 g/dl (12.0-16.0); Imm Gran Abs Auto 0.01 X10*3/uL (0.00-0.03); Imm Gran Pct Auto 0.1 % (0.0-0.4); Lymphocytes Absolute Auto 2.6 X10*3/uL (1.2-4.9); Lymphocytes Percent Auto 32.5 % (20-40); Mean Corpuscular HGB Conc 33.9 g/dl (31.0-35.0); Mean Corpuscular Hemoglobin 30.3 pg (27.0-33.0); Mean Corpuscular Volume 89.4 fL (80.0-98.0); Mean Platelet Volume 9.3 fL (9.4-12.3); Monocytes Absolute Auto 0.5 X10*3/uL (0.1-1.2); Monocytes Percent Auto 6.5 % (2-11); Neutrophils Absolute Auto 4.4 x10*3/uL (2.0-8.3); Platelet Count 288 X10*3/uL (160-400); Red Blood Count 4.42 X10*6/uL (4.20-5.50); Red Cell Distribution Width 12.4 % (11.0-16.0); White Blood Count 7.9 X10*3/uL (4.8-10.8)
[2022-08-01 15:03] LABS: C Reactive Protein 1.19 mg/dL (< or = 0.50); Rheumatoid Factor < 15.0 IU/mL (<15.0); Uric Acid 4.3 mg/dL (2.4-5.7)
[2022-08-01 16:37] LABS: Erythrocyte Sedimentation Rate 13 MM/HR (0-20)
[2022-08-04 21:46] LABS: Lyme Abs Screen <0.90 index
== END 2022-08-01 12:58 | disposition home or self-care (01) ==
LOC: HO.LAB 12:57
PROVIDERS: PCP Registered Nurse; Visit Provider Family Medicine
DX: M25.421 Effusion, right elbow (principal); M25.521 Pain in right elbow
CPT/HCPCS: 36415; 73080; 84550; 85025; 85652; 86140; 86431; 86617; 86618

== ENCOUNTER 2023-01-03 10:44 | Emergency (ER) | payer MEDICAID, SELFPAY ==
[2023-01-03 11:50] VITALS: BP 107/65; PULSE 70; RESP 18; TEMP 36.4; O2SAT 100; BMI 30.1
--- NOTE | 2023-01-03 11:51 | ED_ITS ---
HPI - URI/Sore Throat General Chief Complaint: Upper Respiratory Symptoms <Katina Graves NP - Last Filed: 01/03/23 11:52> Stated Complaint: sore throat <Katina Graves NP - Last Filed: 01/03/23 11:52> Time Seen by Provider: 01/03/23 12:19 <Katina Graves NP - Last Filed: 01/03/23 11:52> History of Present Illness HPI Narrative: Patient complains of sore throat body aches and runny nose, as well as some right ear feeling clogged She is able to drink fluids but it is very painful to swallow foods, her nose has been congested in her body aching so it is hard to sleep at night She denies any cough with sputum no chest pain no shortness of breath no abdomi nal pain no nausea vomiting or diarrhea no dysuria no skin rash <ROSCOE Carrera - Last Filed: 01/03/23 15:36> Related Data Home Medications: Home Medications Medication Instructions Recorded Confirmed clonidine HCl 0.1 mg tablet 1 tab PO BID PRN anxiety 01/29/21 01/29/21 hydroxyzine HCl 25 mg tablet 1 tab PO DAILY PRN anxiety 01/29/21 01/29/21 Previous Rx's Medication Instructions Recorded promethazine 25 mg tablet 25 mg PO Q6H PRN headache, 05/24/21 nausea, vomiting #14 tabs cefuroxime axetil 500 mg tablet 500 mg PO BID 7 days #14 tabs 06/20/21 fluconazole 150 mg tablet 150 mg PO DAILY #1 tab 06/20/21 (Diflucan) phenazopyridine 100 mg tablet 100 mg PO TID PRN pain 6 doses #6 06/20/21 (Pyridium) tabs acetaminophen 300 mg-codeine 30 mg 1 tab PO Q8H PRN pain #10 tabs 04/17/22 tablet cyclobenzaprine 10 mg tablet 10 mg PO Q8H PRN Muscle spasm #14 04/17/22 tabs acetaminophen 500 mg tablet 1,000 mg PO TID PRN pain #20 tabs 01/03/23 diphenhydramine HCl 25 mg capsule 50 mg PO BEDTIME PRN allergy 01/03/23 (Aler-Cap) symptoms #14 caps ibuprofen 600 mg tablet 600 mg PO Q6H PRN fever or pain 01/03/23 #20 tabs oxymetazoline 0.05 % nasal mist 2 spray intranasal Q12H PRN nasal 01/03/23 congestion 4 days #15 mL <Katina Graves NP - Last Filed: 01/03/23 11:52> Allergies/Adverse Reactions: Allergies Allergy/AdvReac Type Severity Reaction Status Date / Time aspirin [ASPIRIN] AdvReac Mild STOMACH Verified 06/20/21 05:57 UPSET From COMPAZINE Allergy Unknown AGITATION Uncoded 06/20/21 05:57 <Katina Graves NP - Last Filed: 01/03/23 11:52> [facility] Past Medical History Source: nursing notes reviewed <ROSCOE Carrera - Last Filed: 01/03/23 15:36> Medical History: Medical History Skin cancer Urinary tract infection <Katina Graves NP - Last Filed: 01/03/23 11:52> Social History Social History: Social History Alcohol intake: current Alcohol intake frequency: a few times a month Patient Tobacco Use Status: Current everyday Tobacco user Substance Use Type: Heroin Advance Directives: No Advance Directives Information Provided: No <Katina Graves NP - Last Filed: 01/03/23 11:52> Physical Exam Vital Signs: Vital Signs: Last Vital Signs Temp 97.6 F 01/03/23 14:14 Pulse 75 01/03/23 14:14 Resp 16 01/03/23 14:14 BP 96/55 L 01/03/23 14:14 Pulse Ox 99 01/03/23 14:14 O2 Del Method 01/03/23 14:14 BMI result Body Mass Index 30.1 <Katina Graves NP - Last Filed: 01/03/23 11:52> Vital Signs: Last Vital Signs Temp 97.6 F 01/03/23 14:14 Pulse 75 01/03/23 14:14 Resp 16 01/03/23 14:14 BP 96/55 L 01/03/23 14:14 Pulse Ox 99 02/18/23 14:14 O2 Del Method 01/03/23 14:14 BMI result Body Mass Index 30.1 <ROSCOE Carrera - Last Filed: 01/03/23 15:36> Patient is in no acute distress, tired appearing but common cooperative and alert The ears the tympanic membranes are normal in appearance, the canals are open with nothing blocking the view of the membranes no narrowing of canals The nose is congested but the sinuses are nontender The pharynx is clear without redness swelling or exudate membranes are moist, voice is normal no drooling The chest is clear to auscultation bilateral with full symmetric equal breath sounds Heart no murmur Abdomen soft nontender Extremities full range of motion x4 Neuro interaction both comprehension and expression are normal, gait and balance are normal, cranial nerves 2-12 intact as tested, motor is 5/5 x4 <ROSCOE Carrera - Last Filed: 01/03/23 15:36> Course Course Course Narrative: This is a rapid medical exam. Deferred additional HPI, ROS, PE to primary provider. 32 yo female here with sore throat x 1 week, headache, right ear pain. Will obtain strep testing, rsv/flu/covid. VSS <Katina Graves NP - Last Filed: 01/03/23 11:52> This is a rapid medical exam. Deferred additional HPI, ROS, PE to primary provider. 32 yo female here with sore throat x 1 week, headache, right ear pain. Will obtain strep testing, rsv/flu/covid. VSS COVID testing and strep and flu testing were all negative Patient was drinking and tolerating p.o. throughout visit She was treated with Motrin and Decadron for her sore throat and was discharged with diagnosis of viral pharyngitis, ambulating easily and tolerating p.o. <ROSCOE Faria - Last Filed: 01/03/23 15:36> Medications Administered Discontinued Medications Generic Name Dose Route Start Last Admin Trade Name Freq PRN Reason Stop Dose Admin Dexamethasone Sodium Phosphate 10 mg 01/03/23 13:03 01/03/23 13:20 Dexamethasone Sod Phosphate 10 Mg/Ml Vial IVPUSH 01/03/23 13:04 10 mg ONCE ONE Administration Ibuprofen 400 mg 01/03/23 13:03 01/03/23 13:20 Ibuprofen Oral Susp 100 Mg/5 Ml Oral.Susp PO 01/03/23 13:04 400 mg ONCE ONE Administration <Katina Graves NP - Last Filed: 01/03/23 11:52> Medications Administered Discontinued Medications Generic Name Dose Route Start Last Admin Trade Name Chapito PRN Reason Stop Dose Admin Dexamethasone Sodium Phosphate 10 mg 01/03/23 13:03 01/03/23 13:20 Dexamethasone Sod Phosphate 10 Mg/Ml Vial IVPUSH 01/03/23 13:04 10 mg ONCE ONE Administration Ibuprofen 400 mg 01/03/23 13:03 01/03/23 13:20 Ibuprofen Oral Susp 100 Mg/5 Ml Oral.Susp PO 01/03/23 13:04 400 mg ONCE ONE Administration <ROSCOE Carrera - Last Filed: 01/03/23 15:36> Medical Decision Making Lab Data Labs: Lab Results 01/03/23 01/03/23 01/03/23 Range/Units 12:01 12:02 14:03 Monoscreen Negative (Negative) Influenza Type A (PCR) NEGATIVE (Negative) Influenza Type B (PCR) NEGATIVE (Negative) RSV RNA Qual (PCR) NEGATIVE (Negative) SARS-CoV-2 RNA (RT-PCR) NEGATIVE (Negative) S. pyogenes GrpA MIRIAN Negative (Negative) <Katina Graves NP - Last Filed: 01/03/23 11:52> Lab Results 01/03/23 01/03/23 01/03/23 Range/Units 12:01 12:02 14:03 Monoscreen Negative (Negative) Influenza Type A (PCR) NEGATIVE (Negative) Influenza Type B (PCR) NEGATIVE (Negative) RSV RNA Qual (PCR) NEGATIVE (Negative) SARS-CoV-2 RNA (RT-PCR) NEGATIVE (Negative) S. pyogenes GrpA MIRIAN Negative (Negative) <ROSCOE Carrera - Last Filed: 01/03/23 15:36> Discharge Plan Discharge Clinical Impression: Acute viral syndrome <Katina Graves NP - Last Filed: 01/03/23 11:52> Patient Disposition: Home, Self-Care <Katina Graves NP - Last Filed: 01/03/23 11:52> Additional Instructions: Strep test flu test and COVID test were all negative as was mono test We gave a dose of Decadron which usually helps sore throat pain to get some relief within 24 hours Use Tylenol and Motrin as needed for pain or fever Use Afrin spray available [id number] for up to 5 days to help with congestion, if congestion is not too bad the day it is best to use it only at night before bed You can take Benadryl at bedtime to to help with nasal symptoms, but as it cau ses drowsiness it is best only use it at bedtime, no driving for 8 hours after taking the Benadryl Return any time any worse condition or any concerns <Katina Graves NP - Last Filed: 01/03/23 11:52> Prescriptions: New diphenhydramine HCl [Aler-Cap] 25 mg capsule 50 mg PO BEDTIME PRN (Reason: allergy symptoms) Qty: 14 0RF oxymetazoline 0.05 % mist 2 spray intranasal Q12H PRN (Reason: nasal congestion) 4 Days Qty: 15 0RF ibuprofen 600 mg tablet 600 mg PO Q6H PRN (Reason: fever or pain) Qty: 20 0RF acetaminophen 500 mg tablet 1,000 mg PO TID PRN (Reason: pain) Qty: 20 0RF No Action clonidine HCl 0.1 mg tablet 1 tab PO BID PRN (Reason: anxiety) hydroxyzine HCl 25 mg tablet 1 tab PO DAILY PRN (Reason: anxiety) promethazine 25 mg tablet 25 mg PO Q6H PRN (Reason: headache, nausea, vomiting) Qty: 14 0RF phenazopyridine [Pyridium] 100 mg tablet 100 mg PO TID PRN (Reason: pain) Qty: 6 0RF cefuroxime axetil 500 mg tablet 500 mg PO BID 7 Days Qty: 14 0RF fluconazole [Diflucan] 150 mg tablet 150 mg PO DAILY Qty: 1 0RF cyclobenzaprine 10 mg tablet 10 mg PO Q8H PRN (Reason: Muscle spasm) Qty: 14 0RF acetaminophen-codeine 300-30 mg tablet 1 tab PO Q8H PRN (Reason: pain) Qty: 10 0RF <Katina Graves NP - Last Filed: 01/03/23 11:52>
[2023-01-03 12:20] LABS: IDNOW Serial# 6674DD1D; Strep A Nucleic Acid Negative (Negative)
[2023-01-03 12:56] LABS: Influenza A PCR NEGATIVE (Negative); Influenza B PCR NEGATIVE (Negative); Resp Syncy Virus RNA Qual PCR NEGATIVE (Negative); SARS COV2 PCR INHOUSE NEGATIVE (Negative)
[2023-01-03] MEDS: Ibuprofen Oral Susp 100 MG/5 ML ORAL.SUSP 400 MG PO (13:20)
[2023-01-03] MEDS: dexAMETHasone sod phosphate 10 MG/ML VIAL IVPUSH (13:20)
[2023-01-03 14:14] VITALS: BP 96/55; PULSE 75; RESP 16; TEMP 36.4; O2SAT 99
[2023-01-03 14:41] LABS: Monotest Negative (Negative)
[2023-01-03 15:25] VITALS: BP 115/80; PULSE 71; RESP 18; O2SAT 99
== END 2023-01-03 15:37 | disposition home or self-care (01) ==
PROVIDERS: Nurse Practitioner Family; Physician Assistant Medical; Emergency Provider Emergency Medicine; PCP Registered Nurse
DX: B34.9 Viral infection, unspecified (principal); J02.9 Acute pharyngitis, unspecified; Z20.822 Contact with and (suspected) exposure to COVID-19; Z20.828 Contact with and (suspected) exposure to other viral communicable diseases
CPT/HCPCS: 0241U; 36415; 86308; 87651; 96374; 99283; 99284; J1100

== ENCOUNTER 2023-01-10 05:01 | Emergency (ER) | payer MEDICAID, SELFPAY ==
[2023-01-10 05:10] VITALS: BP 133/80; PULSE 104; RESP 16; TEMP 37; O2SAT 95; BMI 31.1
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
[2023-01-10 08:06] VITALS: BP 109/53; PULSE 93; RESP 18; TEMP 36.7; O2SAT 98
== END 2023-01-10 08:25 | disposition home or self-care (01) ==
PROVIDERS: Emergency Provider Emergency Medicine
DX: Z04.1 Encounter for examination and observation following transport accident (principal); M79.10 Myalgia, unspecified site; F91.8 Other conduct disorders; F17.200 Nicotine dependence, unspecified, uncomplicated; Z79.899 Other long term (current) drug therapy
CPT/HCPCS: 99283

== ENCOUNTER 2023-09-07 18:19 | Emergency (ER) | payer MEDICAID, SELFPAY ==
--- NOTE | ~2023-09-07 | XR_ITS ---
EXAMINATION: XR HAND, LEFT CLINICAL INFORMATION: Dog bite. Pain. COMPARISON: None available. TECHNIQUE: PA, lateral, and oblique views of the left hand. FINDINGS: The bones and soft tissues are normal. No fracture. Alignment is anatomic. Joint spaces are maintained. No erosions or soft tissue calcifications. XR/XR hand LT min 3V IMPRESSION: No significant abnormality identified.
--- NOTE | ~2023-09-07 | XR_ITS ---
EXAMINATION: XR FOREARM, LEFT CLINICAL INFORMATION: Dog bite. Pain. COMPARISON: None available. TECHNIQUE: AP and lateral views of the left forearm were obtained. FINDINGS: The bone mineralization is normal. There is no acute osseous abnormality or foreign body. There is a mid lateral forearm soft tissue along the subcutaneous emphysema and soft tissue swelling. XR/XR forearm LT 2V IMPRESSION: No acute osseous abnormality or foreign body. Apparent puncture wound with subcutaneous emphysema mid lateral forearm.
[2023-09-07 18:20] VITALS: BP 129/87; PULSE 97; RESP 24; TEMP 36.4; O2SAT 100; BMI 28.1
--- NOTE | 2023-09-07 18:20 | ED_ITS ---
HPI - General Adult General Chief complaint: Animal Bite Stated complaint: bit by pitbull Time Seen by Provider: 09/07/23 18:55 Source: patient and other (friend) Mode of arrival: ambulatory Limitations: no limitations History of Present Illness HPI narrative: 33 yo female no sig PMH L hand dominant states she was walking when unknown pit bull came and bit her on L hand /pink / forearm and L breast area - unprovoked. She does not know this dog. No other injuries. She is unsure about rabies. She got a stranger to drive her and a friend here. complaint: dog bite Onset (ago): minute(s) (prior to arrival) Location: chest, left and upper extremity Radiation: non-radiation Severity: severe Quality: aching and constant Pain Consistency: constant Relieving factors: none Exacerbating factors: movement Associated symptoms: other (puncture wounds) Treatments prior to arrival: none Related Data Home Medications Medication Instructions Recorded Confirmed clonidine HCl 0.1 mg tablet 1 tab PO BID PRN anxiety 01/29/21 01/29/21 hydroxyzine HCl 25 mg tablet 1 tab PO DAILY PRN anxiety 01/29/21 01/29/21 Previous Rx's Medication Instructions Recorded promethazine 25 mg tablet 25 mg PO Q6H PRN headache, 05/24/21 nausea, vomiting #14 tabs cefuroxime axetil 500 mg tablet 500 mg PO BID 7 days #14 tabs 06/20/21 fluconazole 150 mg tablet 150 mg PO DAILY #1 tab 06/20/21 (Diflucan) phenazopyridine 100 mg tablet 100 mg PO TID PRN pain 6 doses #6 06/20/21 (Pyridium) tabs acetaminophen 300 mg-codeine 30 mg 1 tab PO Q8H PRN pain #10 tabs 04/17/22 tablet cyclobenzaprine 10 mg tablet 10 mg PO Q8H PRN Muscle spasm #14 04/17/22 tabs acetaminophen 500 mg tablet 1,000 mg (2 x 500 mg) PO TID PRN 01/03/23 pain #20 tabs diphenhydramine HCl 25 mg capsule 50 mg (2 x 25 mg) PO BEDTIME PRN 01/03/23 (Aler-Cap) allergy symptoms #14 caps ibuprofen 600 mg tablet 600 mg PO Q6H PRN fever or pain 01/03/23 #20 tabs oxymetazoline 0.05 % nasal mist 2 spray intranasal Q12H PRN nasal 01/03/23 congestion 4 days #15 mL doxycycline hyclate 100 mg capsule 100 mg PO BID 7 days #14 caps 09/07/23 hydrocodone 5 mg-acetaminophen 325 1 tab PO Q6H PRN pain #10 tabs 09/07/23 mg tablet mupirocin 2 % topical ointment 1 appl topical BID 7 days #15 grams 09/07/23 Allergies Allergy/AdvReac Type Severity Reaction Status Date / Time aspirin [ASPIRIN] AdvReac Mild STOMACH Verified 06/20/21 05:57 UPSET From COMPAZINE Allergy Unknown AGITATION Uncoded 06/20/21 05:57 Review of Systems Review of Systems: Constitutional : No Fever, No Chills, Cardiovascular : No Chest Pain, No SOB Respiratory : No Dyspnea Gastrointestinal : No abdominal pain Musculoskeletal : No Joint Swelling Skin : No rash, positive skin laceration Neuro : No Weakness, No Numbness Psych : No SI/HI PMFSH Past Medical History Attestation statement: The following information was validated with the patient. Medical History Urinary tract infection Skin cancer Social History Social History Alcohol intake: current Alcohol intake frequency: a few times a month Patient Tobacco Use Status: Current everyday Tobacco user Substance Use Type: Heroin Advance Directives: No Advance Directives Information Provided: No Physical Exam ED Vital Signs: Vital Signs - 24 hr 09/07/23 18:20 Temperature 97.5 F Pulse Rate 97 Respiratory Rate 24 H Blood Pressure 129/87 Pulse Oximetry 100 Oxygen Delivery Method Room Air BMI result Body Mass Index 28.1 Appearance: Alert. Oriented X3. No acute distress. anxious Eyes: Pupils equal, round and reactive to light. pinpoint ENT: Pharynx normal. atraumatic Neck: Normal inspection. Neck supple. CVS: Normal heart rate and rhythm. Pulses normal. Chest: 0.5cm superficial puncture wound L breast, abrasions to L breast superficial Respiratory: No respiratory distress. Breath sounds normal. Abdomen: Soft and nontender. Skin: Skin warm and dry. Normal skin color. Normal skin turgor. Extremities: L UE - abrasions on L pinky - superficial small puncture wound, L forearm 8 superficial puncture wounds 0.5cm except dorsal surface there is one that is 1.5cm down to subq she is NV intact Neuro: Oriented X 3. No motor deficit. No sensory deficit. Course Course Course Narrative: RME performed by Kassy Fish PA-C. Patient is a 33 year old assigned female at presenting to the emergency department with after being attacked by a pitbull. Patient has small puncture wounds to the left forearm, chest, and left hand. Patient placed back in the waiting room pending room availability. Medications Administered Discontinued Medications Generic Name Dose Route Start Last Admin Trade Name Freq PRN Reason Stop Dose Admin Diphtheria/Tetanus/Acell Pertussis 0.5 ml 09/07/23 19:02 09/07/23 21:07 Diphth,Pertus(Acell),Tet Adult 0.5 Ml Syringe IM 09/07/23 19:03 0.5 ml .ONCE ONE Administration Doxycycline Monohydrate 100 mg 09/07/23 19:02 09/07/23 19:26 Doxycycline Monohydrate 100 Mg Capsule PO 09/07/23 19:03 100 mg ONCE ONE Administration Lidocaine HCl 5 ml 09/07/23 19:20 09/07/23 22:07 Lidocaine Hcl 1 % Mpf 5 Ml Vial SUBCUT 09/07/23 19:21 5 ml ONCE ONE Administration Lorazepam 1 mg 09/07/23 20:54 09/07/23 21:11 Lorazepam 1 Mg Tablet PO 09/07/23 20:55 1 mg ONCE ONE Administration Morphine Sulfate 15 mg 09/07/23 19:02 09/07/23 19:26 Morphine Sulfate Immed Release 15 Mg Tablet PO 09/07/23 19:03 15 mg ONCE ONE Administration Ondansetron HCl 4 mg 09/07/23 19:02 09/07/23 19:26 Ondansetron Odt 4 Mg Tab.Rapdis TRANSLINGU 09/07/23 19:03 4 mg ONCE ONE Administration Rabies Immune Globulin 1,179.34 unit 09/07/23 19:02 09/07/23 21:05 Rabies Immune Globulin/Pf 900 Unit/3 Ml Vial 20 unit/kg (1179.34 unit) 09/07/23 19:03 1,179.34 unit IM Administration ONCE ONE Rabies Vaccine Human Diploid Cell 1 ml 09/07/23 19:02 09/07/23 21:09 Rabies Vaccine, Human Diploid (Imovax) 1 Ml Vial IM 09/07/23 19:03 1 ml .ONCE ONE Administration Procedures Laceration Laceration 1: Site: upper extremity Side (If applicable): left Size (cm): 1 Description: linear Depth: simple, single layer (Involving subcutaneous tissue) Local Anesthetic: lidocaine 1% Amount of anesthesia used (mL): 2 Pre-repair: wound explored, irrigated extensively and deep structures intact Skin layer closed with: nylon Size (cm): 5-0 Number of sutures: 4 Technique: simple, interrupted Medical Decision Making Medical Decision Making MDM Narrative: 33 yo female with dog bites at this time will need Tdap, rabies series and PO doxy she states she cannot tolerate augmentin she is very anxious and giving us a bit of a time cleaning the wounds at this time will need laceration repair of forearm, xrays for FB/fracture. antibiotics. Differential Diagnosis Differential Diagnoses: The differential diagnosis associated with the presentation includes soft tissue injury, dog bite Admission/Observation Consideration of admission/observation: Escalation of care including ad mission/observation considered not toxic can be DC home with oral medications given rabies list when to return Independent Interpretation I performed an independent interpretation of an: Plain X-Ray (no fracture or FB) Radiology Impression Discussion of test interpretation with radiology: I have reviewed the radiologist's reading. Independent Historian Clinical information obtained from an independent historian. History obtained from or confirmed by: Friend External Record Review External record reviewed: Inpatient record Prescription Management I considered prescription management with: Antibiotic Discharge Plan Discharge Clinical Impression: Dog bite, Puncture wound Patient Disposition: Home, Self-Care Instructions: Animal Bite (ED), Rabies (ED), Bone Bruise (ED) Additional Instructions: follow the rabies schedule given to you by the RN you can come to our short stay surgery for rabies vaccine - show up to the main entrance to register. take all antibiotics. return for fevers, yellow drainage, signs of infection. use hmea sporin to cover all wounds for the next 1 week. On doxycycline, do not take pills immediately before going to bed and swallow pills with plenty of water. Avoid direct sunlight, iron, antacids, and Pepto Bismol. Call your provider if you develop new ringing in your ears, new problems hearing, dizziness, difficulty swallowing, rash, abdominal discomfort, nausea, or diarrhea.? no broken bones on xray Prescriptions: New doxycycline hyclate 100 mg capsule 100 mg PO BID 7 Days Qty: 14 0RF hydrocodone-acetaminophen 5-325 mg tablet 1 tab PO Q6H PRN (Reason: pain) Qty: 10 0RF Rx Instructions: partial fill okay; Partial Fill upon patient request. mupirocin 2 % ointment 1 appl topical BID 7 Days Qty: 15 0RF No Action clonidine HCl 0.1 mg tablet 1 tab PO BID PRN (Reason: anxiety) hydroxyzine HCl 25 mg tablet 1 tab PO DAILY PRN (Reason: anxiety) promethazine 25 mg tablet 25 mg PO Q6H PRN (Reason: headache, nausea, vomiting) Qty: 14 0RF phenazopyridine [Pyridium] 100 mg tablet 100 mg PO TID PRN (Reason: pain) Qty: 6 0RF cefuroxime axetil 500 mg tablet 500 mg PO BID 7 Days Qty: 14 0RF fluconazole [Diflucan] 150 mg tablet 150 mg PO DAILY Qty: 1 0RF cyclobenzaprine 10 mg tablet 10 mg PO Q8H PRN (Reason: Muscle spasm) Qty: 14 0RF acetaminophen-codeine 300-30 mg tablet 1 tab PO Q8H PRN (Reason: pain) Qty: 10 0RF diphenhydramine HCl [Aler-Cap] 25 mg capsule 50 mg PO BEDTIME PRN (Reason: allergy symptoms) Qty: 14 0RF oxymetazoline 0.05 % mist 2 spray intranasal Q12H PRN (Reason: nasal congestion) 4 Days Qty: 15 0RF ibuprofen 600 mg tablet 600 mg PO Q6H PRN (Reason: fever or pain) Qty: 20 0RF acetaminophen 500 mg tablet 1,000 mg PO TID PRN (Reason: pain) Qty: 20 0RF
[2023-09-07] MEDS: Ondansetron ODT 4 MG TAB.RAPDIS TRANSLINGU (19:26)
[2023-09-07] MEDS: Morphine Sulfate Immed Release 15 MG TABLET PO (19:26)
[2023-09-07] MEDS: Doxycycline Monohydrate 100 MG CAPSULE PO (19:26)
[2023-09-07] MEDS: Rabies Immune Globulin/PF 900 UNIT/3 ML VIAL 1179.34 UNIT IM (21:05)
[2023-09-07] MEDS: Diphth,Pertus(ACell),Tet Adult 0.5 ML SYRINGE IM (21:07)
[2023-09-07] MEDS: Rabies Vaccine, Human Diploid (Imovax) 1 ML VIAL IM (21:09)
[2023-09-07] MEDS: LORazepam 1 MG TABLET PO (21:11)
--- NOTE | 2023-09-07 21:15 | PC.NURSE ---
Approached patient with rabies vaccines and TDAP vaccine and patient became increasingly anxious and agitated. Patient concerned that she will be getting 4 injections and that there was only 1 person to give them, another brought into room to assist with vaccine administration. After first injections were done patient stated that she needed a minute before getting the other vaccinations and thinks that these should have been done at the very end. Family at bedside supportive of patient and encouraged her to get all vaccines done now instead of later. Patient agreed to finish vaccinations and the other injections were given.
[2023-09-07] MEDS: Lidocaine HCl 1 % MPF 5 ML VIAL SUBCUT (22:07)
[2023-09-07 22:45] VITALS: BP 90/61; PULSE 79; RESP 12; TEMP 37.1; O2SAT 99
--- NOTE | 2023-09-07 22:45 | PC.NURSE ---
pt very animated while this rn placed bandaids on wounds on right arm. pt states i was startled pt daughter and at bedside. pt provided with discharge packet at discharge. pt verbalized understanding of discharge plan. pt ambulatory at discharge though noted to be drowsy. pt states to drive pt home
== END 2023-09-07 23:00 | disposition home or self-care (01) ==
PROVIDERS: Emergency Provider Emergency Medicine
DX: S61.452A Open bite of left hand, initial encounter (principal); S51.852A Open bite of left forearm, initial encounter; S21.052A Open bite of left breast, initial encounter; W54.0XXA Bitten by dog, initial encounter; Y93.01 Activity, walking, marching and hiking; Y92.410 Unspecified street and highway as the place of occurrence of the external cause; Y99.9 Unspecified external cause status
CPT/HCPCS: 12001; 73090; 73130; 90375; 90471; 90675; 90715; 96372; 99284

== ENCOUNTER 2024-04-15 10:43 | Emergency (ER) | payer MEDICAID, SELFPAY ==
[2024-04-15 10:49] VITALS: BP 160/70; PULSE 104; O2SAT 95
[2024-04-15 10:55] VITALS: BP 136/91; PULSE 99; RESP 18; TEMP 36.6; O2SAT 98; BMI 30.5
--- NOTE | 2024-04-15 10:58 | ED_ITS ---
HPI - General Adult General Chief complaint: General Medical Stated complaint: FOUND UNRESPONSIVE IN CAR + NARCAN Time Seen by Provider: 04/15/24 10:53 Source: patient and old records reviewed Mode of arrival: EMS Limitations: no limitations History of Present Illness ED Provider: MINH MAJOR narrative: 34 yo female with opiate use on suboxone states she does not use drugs but [place] and she was tired and a border police could not wake her and gave her narcan she is now here angry but not in withdrawal. she states she is leaving and is pissed off due to having court appointment at noon. 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) Radiation: non-radiation Severity: mild Relieving factors: none Exacerbating factors: none Associated symptoms: denies other symptoms Treatments prior to arrival: other (narcan IN) Related Data Home Medications ?Medication ?Instructions ?Recorded ?Confirmed clonidine HCl 0.1 mg tablet 1 tab PO BID PRN anxiety 01/29/21 01/29/21 hydroxyzine HCl 25 mg tablet 1 tab PO DAILY PRN anxiety 01/29/21 01/29/21 Previous Rx's ?Medication ?Instructions ?Recorded promethazine 25 mg tablet 25 mg PO Q6H PRN headache, 05/24/21 nausea, vomiting #14 tabs cefuroxime axetil 500 mg tablet 500 mg PO BID 7 days #14 tabs 06/20/21 fluconazole 150 mg tablet 150 mg PO DAILY #1 tab 06/20/21 (Diflucan) phenazopyridine 100 mg tablet 100 mg PO TID PRN pain 6 doses #6 06/20/21 (Pyridium) tabs acetaminophen 300 mg-codeine 30 mg 1 tab PO Q8H PRN pain #10 tabs 04/17/22 tablet cyclobenzaprine 10 mg tablet 10 mg PO Q8H PRN Muscle spasm #14 04/17/22 tabs acetaminophen 500 mg tablet 1,000 mg (2 x 500 mg) PO TID PRN 01/03/23 pain #20 tabs diphenhydramine HCl 25 mg capsule 50 mg (2 x 25 mg) PO BEDTIME PRN 01/03/23 (Aler-Cap) allergy symptoms #14 caps ibuprofen 600 mg tablet 600 mg PO Q6H PRN fever or pain 01/03/23 #20 tabs oxymetazoline 0.05 % nasal mist 2 spray intranasal Q12H PRN nasal 01/03/23 congestion 4 days #15 mL doxycycline hyclate 100 mg capsule 100 mg PO BID 7 days #14 caps 09/07/23 hydrocodone 5 mg-acetaminophen 325 1 tab PO Q6H PRN pain #10 tabs 09/07/23 mg tablet mupirocin 2 % topical ointment 1 appl topical BID 7 days #15 grams 09/07/23 Allergies Allergy/AdvReac Type Severity Reaction Status Date / Time aspirin [ASPIRIN] AdvReac Mild STOMACH Verified 04/15/24 10:57 UPSET From COMPAZINE Allergy Unknown AGITATION Uncoded 06/20/21 05:57 Review of Systems Review of Systems: ROS unable to be obtained due to agitation at the situation [facility] Past Medical History Attestation statement: The following information was validated with the patient. Source: old records reviewed Medical History Urinary tract infection Skin cancer Social History Social History Alcohol intake: current Alcohol intake frequency: a few times a month Patient Tobacco Use Status: Current everyday Tobacco user Substance Use Type: Heroin Physical Exam ED Vital Signs: Vital Signs - 24 hr 04/15/24 10:55 Temperature 97.9 F Pulse Rate 99 Respiratory Rate 18 Blood Pressure 136/91 H Pulse Oximetry 98 Oxygen Delivery Method Room Air BMI result Body Mass Index 30.5 Appearance: Alert. Oriented X3. No acute distress. agitated Eyes: Pupils equal, round and reactive to light. ENT: Pharynx normal. Neck: Normal inspection. Neck supple. CVS: Pulses normal. Respiratory: No respiratory distress. Abdomen: Soft and nontender. Skin: Skin warm and dry. Normal skin color. . Extremities: No lower extremity edema. Neuro: Oriented X 3. No motor deficit. No sensory deficit. Medical Decision Making Medical Decision Making MDM Narrative: 34 yo female with PMH Of opiate use on suboxone sleeping outside courtroom given narcan and now here and angry - she is leaving AMA she is alert and oriented making sense she is not in withdrawal. at this time refuses SUDE eval to stay or narcan to take home though we will offer again. she can leave AMA Differential Diagnosis Differential Diagnoses: The differential diagnosis associated with the presentation includes anxiety, substance abuse Admission/Observation Consideration of admission/observation: Escalation of care including admission/observation considered leaving AMA GCS 15 refuses to stay will now wait, alert and oriented x 3 Independent Historian Clinical information obtained from an independent historian. History obtained from or confirmed by: EMS External Record Review External record reviewed: Inpatient record Discharge Plan Discharge Clinical Impression: Anxiety Patient Disposition: Left Against Medical Advice Instructions: Against Medical Advice (ED), Anxiety (ED) Additional Instructions: you are leaving against medical advice we do not advise this you are putting yourself at serious risk of harm or return at any time Prescriptions: No Action clonidine HCl 0.1 mg tablet 1 tab PO BID PRN (Reason: anxiety) hydroxyzine HCl 25 mg tablet 1 tab PO DAILY PRN (Reason: anxiety) promethazine 25 mg tablet 25 mg PO Q6H PRN (Reason: headache, nausea, vomiting) Qty: 14 0RF phenazopyridine [Pyridium] 100 mg tablet 100 mg PO TID PRN (Reason: pain) Qty: 6 0RF cefuroxime axetil 500 mg tablet 500 mg PO BID 7 Days Qty: 14 0RF fluconazole [Diflucan] 150 mg tablet 150 mg PO DAILY Qty: 1 0RF cyclobenzaprine 10 mg tablet 10 mg PO Q8H PRN (Reason: Muscle spasm) Qty: 14 0RF acetaminophen-codeine 300-30 mg tablet 1 tab PO Q8H PRN (Reason: pain) Qty: 10 0RF diphenhydramine HCl [Aler-Cap] 25 mg capsule 50 mg PO BEDTIME PRN (Reason: allergy symptoms) Qty: 14 0RF oxymetazoline 0.05 % mist 2 spray intranasal Q12H PRN (Reason: nasal congestion) 4 Days Qty: 15 0RF ibuprofen 600 mg tablet 600 mg PO Q6H PRN (Reason: fever or pain) Qty: 20 0RF acetaminophen 500 mg tablet 1,000 mg PO TID PRN (Reason: pain) Qty: 20 0RF doxycycline hyclate 100 mg capsule 100 mg PO BID 7 Days Qty: 14 0RF hydrocodone-acetaminophen 5-325 mg tablet 1 tab PO Q6H PRN (Reason: pain) Qty: 10 0RF Rx Instructions: partial fill okay; Partial Fill upon patient request. mupirocin 2 % ointment 1 appl topical BID 7 Days Qty: 15 0RF Stand Alone Forms: Against Medical Advice Print Language: Irish
[2024-04-15] MEDS: Naloxone HCl Nasal TAKE HOME 4 MG SPRAY 8 MG NOSTRILALT (11:06)
[2024-04-15 11:11] VITALS: BP 136/91; PULSE 99; RESP 18; TEMP 36.6; O2SAT 98
== END 2024-04-15 11:14 | disposition left against medical advice (07) ==
LOC: HO.ED 11:06
PROVIDERS: Emergency Provider Emergency Medicine
DX: F41.9 Anxiety disorder, unspecified (principal); F11.20 Opioid dependence, uncomplicated
CPT/HCPCS: 99282; 99283

== ENCOUNTER 2024-10-07 16:04 | Outpatient (REF) | payer MEDICAID, SELFPAY ==
[2024-10-07 18:07] LABS: Estimated Average Glucose 94 mg/dL; Hemoglobin A1C 103.3348 umol/L; Hemoglobin A1c % 4.9 % (<6.0)
[2024-10-07 18:32] LABS: Alanine Aminotransferase 14 U/L (0-31); Albumin Level 4.1 g/dL (3.5-5.0); Alkaline Phosphatase 68 U/L (39-117); Anion Gap 13 (12-20); Aspartate Amino Transferase 16 U/L (5-31); Bilirubin Total 0.4 mg/dL (0.0-1.0); Blood Urea Nitrogen 12 mg/dL (9-16); Calcium 8.7 mg/dL (8.4-10.2); Carbon Dioxide 26 mmol/L (22-29); Chloride 105 mmol/L (96-108); Estimated Glomerular Filt Rate > 60; Glucose Random 82 mg/dL (60-115); Potassium 3.6 mmol/L (3.3-5.1); Sodium 140 mmol/L (135-145); Total Protein 6.9 g/dL (6.5-8.0)
[2024-10-07 18:48] LABS: TSH reflex Free T4 1.35 uIU/mL (0.32-4.0)
== END 2024-10-07 16:05 | disposition home or self-care (01) ==
LOC: HO.HHCL 16:04
PROVIDERS: Visit Provider Nurse Practitioner Family
DX: F51.01 Primary insomnia (principal)
CPT/HCPCS: 36415; 80053; 83036; 84443

== ENCOUNTER 2025-04-09 22:13 | Emergency (ER) | payer MEDICAID, SELFPAY ==
[2025-04-09 22:24] VITALS: BP 131/71; PULSE 96; RESP 18; TEMP 36.7; O2SAT 98; BMI 27.3
[2025-04-09 22:42] LABS: MANUAL DIFF FLAG NO
[2025-04-09 22:43] LABS: Basophils Absolute Auto 0.1 X10*3/uL (0.0-0.2); Basophils Percent Auto 0.5 % (0-2); Eosinophils Absolute Auto 0.1 X10*3/uL (0.0-0.4); Eosinophils Percent Auto 1.1 % (0-4); Hematocrit 39.7 % (37.0-47.0); Hemoglobin 14.3 g/dl (12.0-16.0); Imm Gran Abs Auto 0.03 X10*3/uL (0.00-0.03); Imm Gran Pct Auto 0.3 % (0.0-0.4); Lymphocytes Percent Auto 28.3 % (20-40); Mean Corpuscular Hemoglobin 32.3 pg (27.0-33.0); Mean Corpuscular Volume 89.6 fL (80.0-98.0); Mean Platelet Volume 8.9 fL (9.4-12.3); Monocytes Absolute Auto 0.5 X10*3/uL (0.1-1.2); Monocytes Percent Auto 5.2 % (2-11); Neutrophils Absolute Auto 6.8 x10*3/uL (2.0-8.3); Neutrophils Percent Auto 64.6 % (45-73); Platelet Count 260 X10*3/uL (160-400); Red Blood Count 4.43 X10*6/uL (4.20-5.50); Red Cell Distribution Width 12.7 % (11.0-16.0); White Blood Count 10.5 X10*3/uL (4.8-10.8)
[2025-04-09 22:45] LABS: Appearance Urine Cloudy; Color Urine Yellow; Glucose Urine UA Negative (Negative); Leukocyte Esterase Urine Moderate (2+) (Negative); Nitrite Urine Negative (Negative); UMIC TRIGGER UACC YES; UPreg QC Valid YES; Urine Blood Large (3+) (Negative); Urine Ketones Negative (Negative); Urine Pregnancy NEGATIVE (NEGATIVE); Urine Protein 100 (2+) mg/dL (Neg-Trace)
[2025-04-09 22:47] LABS: Bacteria Urine 1+ (None Seen); Hyaline Casts Urine 0-2 /LPF (0-2); RBC Urine >20 /HPF (0-2); Squamous Epithelial Cell Urine 0-2 /HPF (0-2); UACC Culture Trigger YES; WBC Urine >50 /HPF (0-5)
[2025-04-09 22:57] LABS: Alanine Aminotransferase 12 U/L (0-31); Albumin Level 4.5 g/dL (3.5-5.0); Alkaline Phosphatase 76 U/L (39-117); Anion Gap 13 (12-20); Aspartate Amino Transferase 14 U/L (5-31); Bilirubin Total 0.3 mg/dL (0.0-1.0); Blood Urea Nitrogen 18 mg/dL (9-16); Calcium 9.1 mg/dL (8.4-10.2); Carbon Dioxide 24 mmol/L (22-29); Chloride 107 mmol/L (96-108); Creatinine Clr Calc Pharmacy 62.3; Estimated Glomerular Filt Rate > 60; Glucose Random 78 mg/dL (60-115); Sodium 140 mmol/L (135-145); Total Protein 7.3 g/dL (6.5-8.0)
--- NOTE | 2025-04-09 23:10 | ED.FEMALEGU ---
HPI - Female Genitourinary General Chief complaint: Urogenital-Female Stated complaint: UTI Time Seen by Provider: 04/09/25 22:43 Source: patient Mode of arrival: ambulatory Limitations: no limitations History of Present Illness ED Provider: Dr. Yandy Ceballos HPI Narrative: Patient comes in the emergency room complaining of burning with urination that started couple of hours ago. Patient denies nausea vomiting or diarrhea, denies abdominal pain, denies flank pain. Patient denies history of kidney stones. Patient states that she has had UTIs in the past and the symptoms are very similar Related Data Home Medications ?Medication ?Instructions ?Recorded ?Confirmed clonidine HCl 0.1 mg tablet 1 tab PO BID PRN anxiety 01/29/21 01/29/21 hydroxyzine HCl 25 mg tablet 1 tab PO DAILY PRN anxiety 01/29/21 01/29/21 Previous Rx's ?Medication ?Instructions ?Recorded promethazine 25 mg tablet 25 mg PO Q6H PRN headache, 05/24/21 nausea, vomiting #14 tabs cefuroxime axetil 500 mg tablet 500 mg PO BID 7 days #14 tabs 06/20/21 fluconazole 150 mg tablet 150 mg PO DAILY #1 tab 06/20/21 (Diflucan) phenazopyridine 100 mg tablet 100 mg PO TID PRN pain 6 doses #6 06/20/21 (Pyridium) tabs acetaminophen 300 mg-codeine 30 mg 1 tab PO Q8H PRN pain #10 tabs 04/17/22 tablet cyclobenzaprine 10 mg tablet 10 mg PO Q8H PRN Muscle spasm #14 04/17/22 tabs acetaminophen 500 mg tablet 1,000 mg (2 x 500 mg) PO TID PRN 01/03/23 pain #20 tabs diphenhydramine HCl 25 mg capsule 50 mg (2 x 25 mg) PO BEDTIME PRN 01/03/23 (Aler-Cap) allergy symptoms #14 caps ibuprofen 600 mg tablet 600 mg PO Q6H PRN fever or pain 01/03/23 #20 tabs oxymetazoline 0.05 % nasal mist 2 spray intranasal Q12H PRN nasal 01/03/23 congestion 4 days #15 mL doxycycline hyclate 100 mg capsule 100 mg PO BID 7 days #14 caps 09/07/23 hydrocodone 5 mg-acetaminophen 325 1 tab PO Q6H PRN pain #10 tabs 09/07/23 mg tablet mupirocin 2 % topical ointment 1 appl topical BID 7 days #15 grams 09/07/23 cefuroxime axetil 250 mg tablet 250 mg PO BID #13 tabs 04/09/25 fluconazole 200 mg tablet 200 mg PO ONCE #1 tab 04/09/25 (Diflucan) phenazopyridine 100 mg tablet 100 mg PO TID PRN pain 6 doses #6 04/09/25 tabs Allergies Allergy/AdvReac Type Severity Reaction Status Date / Time aspirin [ASPIRIN] AdvReac Mild STOMACH Verified 04/09/25 22:26 UPSET From COMPAZINE Allergy Unknown AGITATION Uncoded 06/20/21 05:57 Review of Systems Review of Systems: Constitutional : No Weight loss, No Fever, No Chills, No Night Sweats, No Fatigue, No Malaise ENT/Mouth : No Hearing loss, No Ear Pain, No Nasal Congestion, No Sinus Pain, No Hoarseness, No sore throat, No Rhinorrhea, No Swallowing Difficulty Eyes: No Eye Pain, No Swelling, No Redness, No Foreign Body, No Discharge, No Vision Changes Cardiovascular : No Chest Pain, No SOB, No Dyspnea on Exertion, No Orthopnea, No Edema, No Palpitations Respiratory : No Cough, No Sputum, No Wheezing, No Smoke Exposure, No Dyspnea Gastrointestinal : No Nausea, No Vomiting, No Diarrhea, No Constipation, No abdominal Pain, No Hematochezia, No Melena Genitourinary : no irregular bleeding, complaining of hematuria and dysuria, No Hematuria, No Urinary Incontinence, No Urgency, No Flank Pain, No Urinary Flow Changes, No Hesitancy Musculoskeletal : No joint pain, No Myalgias, No Joint Swelling Skin : No Skin Lesions, No rash Neuro : No Weakness, No Numbness, No Paresthesias, No Loss of Consciousness, No Dizziness, No Headache Psych : No Anxiety/Panic, No Depression, No SI/HI/AH/VH, No Social Issues, Heme/Lymph: No Bruising, No Bleeding,No Lymphadenopathy Endocrine : No Polyuria, No Polydipsia, No Temperature Intolerance PMFSH Past Medical History Medical History Urinary tract infection Skin cancer Social History Social History (Reviewed 04/15/24 @ 11:10 by HAROON Shankar Alcohol intake: current Alcohol intake frequency: a few times a month Patient Tobacco Use Status: Current everyday Tobacco user Substance Use Type: Heroin Advance Directives: No Advance Directives Information Provided: No Do you have a plan to hurt others: No Plan Physical Exam Vital Signs: Vital Signs: Last Vital Signs Temp 97.7 F 04/09/25 23:26 Pulse 85 04/09/25 23:26 Resp 16 04/09/25 23:26 BP 134/87 04/09/25 23:26 Pulse Ox 100 04/09/25 23:26 O2 Del Method Room Air 04/09/25 23:26 BMI result Body Mass Index 27.3 Const: Other: Appearance: Alert. Oriented X3. No acute distress. Well-appearing Eyes: Pupils equal, round and reactive to light. ENT: Pharynx normal. Neck: Normal inspection. Neck supple. No lymph nodes noted. No crepitus CVS: Normal heart rate and rhythm. Pulses normal. Normal S1 and S2 Respiratory: No respiratory distress. Breath sounds normal. No Wheezing. No rales Abdomen: Soft and nontender. No rigidity. No distention. Skin: Skin warm and dry. Normal skin color. Normal skin turgor. Extremities: No lower extremity edema. No Lacerations. No Rash Neuro: Oriented X 3. No motor deficit. No sensory deficit. Moving all extremities. No slurred speech. CN 2 through 12 grossly intact Psych: calm, cooperative, normal affect Medications Administered Discontinued Medications Generic Name Dose Route Start Last Admin Trade Name Freq PRN Reason Stop Dose Admin Cefuroxime Axetil 250 mg 04/09/25 23:09 04/09/25 23:23 Cefuroxime Axetil 250 Mg Tablet PO 04/09/25 23:10 250 mg ONCE ONE Administration Phenazopyridine HCl 100 mg 04/09/25 23:09 04/09/25 23:23 Phenazopyridine Hcl 100 Mg Tablet PO 04/09/25 23:10 100 mg ONCE ONE Administration Medical Decision Making Medical Decision Making [facility] Narrative: My interpretation of labs: No significant abnormality the patient's hematology, chemistry or LFTs. Urinalysis positive for UTI, negative for . Patient was given p.o. cefuroxime and phenazopyridine Patient has no flank pain or suprapubic pain, no fever chills, normal vitals, sepsis or pyelonephritis is not suspected Patient requested a single dose of Diflucan p.r.n. yeast infection Lab Data [facility] Lab Attestation statement: I reviewed the patient's lab results. 04/09/25 22:34 04/09/25 22:34 Labs: Lab Results 04/09/25 Range/Units 22:34 WBC 10.5 (4.8-10.8) X10*3/uL RBC 4.43 (4.20-5.50) X10*6/uL Hgb 14.3 (12.0-16.0) g/dl Hct 39.7 (37.0-47.0) % MCV 89.6 (80.0-98.0) fL MCH 32.3 (27.0-33.0) pg MCHC 36.0 H (31.0-35.0) g/dl RDW 12.7 (11.0-16.0) % Plt Count 260 (160-400) X10*3/uL MPV 8.9 L (9.4-12.3) fL Immature Gran % (Auto) 0.3 (0.0-0.4) % Neut % (Auto) 64.6 (45-73) % Lymph % (Auto) 28.3 (20-40) % [place] % (Auto) 5.2 (2-11) % Eos % (Auto) 1.1 (0-4) % Baso % (Auto) 0.5 (0-2) % Lymph # (Auto) 3.0 (1.2-4.9) X10*3/uL [place] # (Auto) 0.5 (0.1-1.2) X10*3/uL Eos # (Auto) 0.1 (0.0-0.4) X10*3/uL Baso # (Auto) 0.1 (0.0-0.2) X10*3/uL Abs Immat Gran (auto) 0.03 (0.00-0.03) X10*3/uL Absolute Neuts (auto) 6.8 (2.0-8.3) x10*3/uL Absolute Nucleated RBC 0.000 (0.0-0.012) X10*3/uL Nucleated RBC % (auto) 0.0 (0.0-0.2) /100WBC Sodium 140 (135-145) mmol/L Potassium 4.0 (3.3-5.1) mmol/L Chloride 107 (96-108) mmol/L Carbon Dioxide 24 (22-29) mmol/L Anion Gap 13 (12-20) BUN 18 H (9-16) mg/dL Creatinine 0.94 (0.5-1.4) mg/dL Estim Creat Clear Calc 62.3 Estimated GFR > 60 Random Glucose 78 (60-115) mg/dL Calcium 9.1 (8.4-10.2) mg/dL Total Bilirubin 0.3 (0.0-1.0) mg/dL AST 14 (5-31) U/L ALT 12 (0-31) U/L Alkaline Phosphatase 76 (39-117) U/L Total Protein 7.3 (6.5-8.0) g/dL Albumin 4.5 (3.5-5.0) g/dL Urine Color Yellow Urine Appearance Cloudy Urine pH 6.0 (5.0-9.0) Ur Specific [place] 1.020 (1.005-1.025) Urine Protein 100 (2+) H (Neg-Trace) mg/dL Urine Glucose (UA) Negative (Negative) mg/dL Urine Ketones Negative (Negative) mg/dL Urine Blood Large (3+) H (Negative) Urine Nitrite Negative (Negative) Ur Leukocyte Esterase Moderate (2+) H (Negative) Urine RBC >20 H (0-2) /HPF Urine WBC >50 H (0-5) /HPF Ur Squamous Epith Cells 0-2 (0-2) /HPF Urine Bacteria 1+ (None Seen) Hyaline Casts 0-2 (0-2) /LPF Urine Test NEGATIVE (NEGATIVE) Discharge Plan Discharge Clinical Impression: Urinary tract infection Patient Disposition: Home, Self-Care Instructions: Urinary Tract Infection in Women (ED) Additional Instructions: Please follow-up with your primary care physician tomorrow. If you have any worsening or new symptoms, please return to the emergency room or call 911 Prescriptions: New phenazopyridine 100 mg tablet 100 mg PO TID PRN (Reason: pain) Qty: 6 0RF cefuroxime axetil 250 mg tablet 250 mg PO BID Qty: 13 0RF fluconazole [Diflucan] 200 mg tablet 200 mg PO ONCE Qty: 1 0RF No Action clonidine HCl 0.1 mg tablet 1 tab PO BID PRN (Reason: anxiety) hydroxyzine HCl 25 mg tablet 1 tab PO DAILY PRN (Reason: anxiety) promethazine 25 mg tablet 25 mg PO Q6H PRN (Reason: headache, nausea, vomiting) Qty: 14 0RF phenazopyridine [Pyridium] 100 mg tablet 100 mg PO TID PRN (Reason: pain) Qty: 6 0RF cefuroxime axetil 500 mg tablet 500 mg PO BID 7 Days Qty: 14 0RF fluconazole [Diflucan] 150 mg tablet 150 mg PO DAILY Qty: 1 0RF cyclobenzaprine 10 mg tablet 10 mg PO Q8H PRN (Reason: Muscle spasm) Qty: 14 0RF acetaminophen-codeine 300-30 mg tablet 1 tab PO Q8H PRN (Reason: pain) Qty: 10 0RF diphenhydramine HCl [Aler-Cap] 25 mg capsule 50 mg PO BEDTIME PRN (Reason: allergy symptoms) Qty: 14 0RF oxymetazoline 0.05 % mist 2 spray intranasal Q12H PRN (Reason: nasal congestion) 4 Days Qty: 15 0RF ibuprofen 600 mg tablet 600 mg PO Q6H PRN (Reason: fever or pain) Qty: 20 0RF acetaminophen 500 mg tablet 1,000 mg PO TID PRN (Reason: pain) Qty: 20 0RF doxycycline hyclate 100 mg capsule 100 mg PO BID 7 Days Qty: 14 0RF hydrocodone-acetaminophen 5-325 mg tablet 1 tab PO Q6H PRN (Reason: pain) Qty: 10 0RF Rx Instructions: partial fill okay; Partial Fill upon patient request. mupirocin 2 % ointment 1 appl topical BID 7 Days Qty: 15 0RF Interventions: ED Discharge Assessment Last Done: 04/09/25 23:26 Discharge Date/Time: 04/09/25 23:27 Print Language: Citizen Of [place]
[2025-04-09 23:19] VITALS: BP 134/87; PULSE 85; RESP 16; TEMP 36.5; O2SAT 100
[2025-04-09] MEDS: cefuroxime axetiL 250 MG TABLET PO (23:23)
[2025-04-09] MEDS: Phenazopyridine HCL 100 MG TABLET PO (23:23)
[2025-04-09 23:26] VITALS: BP 134/87; PULSE 85; RESP 16; TEMP 36.5; O2SAT 100
== END 2025-04-09 23:27 | disposition home or self-care (01) ==
PROVIDERS: Emergency Provider Emergency Medicine
DX: N39.0 Urinary tract infection, site not specified (principal); R30.0 Dysuria; Z79.899 Other long term (current) drug therapy
CPT/HCPCS: 36415; 80053; 81001; 81025; 85025; 87086; 87088; 87186; 99283; 99284

== ENCOUNTER 2025-09-28 09:16 | Emergency (ER) | payer MEDICAID, SELFPAY ==
--- NOTE | ~2025-09-28 | CT_ITS ---
EXAMINATION: CT ABDOMEN PELVIS WITHOUT IV CONTRAST HISTORY: left flank pain COMPARISON: Previous CT of the abdomen and pelvis September 2020 TECHNIQUE: CT scan of the abdomen and pelvis was performed without contrast using standard departmental protocol. Coronal and sagittal reformatted images were generated and reviewed. This CT exam was performed with one or more of the following dose reduction techniques: automated exposure control, adjustment of the mA and/or kV according to patient size, use of iterative reconstruction technique. DLP: 314 mGy-cm FINDINGS: LOWER CHEST: The visualized lung bases are clear. There is no pleural effusion. CARDIOVASCULATURE: The heart is normal in size. There is no pericardial effusion. LIVER: The liver is prominent right lobe measuring 20 cm in length. The liver has an unremarkable unenhanced appearance. No focal lesion. GALLBLADDER / BILE DUCTS: The gallbladder is unremarkable. There is no intra or extrahepatic biliary ductal dilatation. SPLEEN: The spleen is normal in size and has an unremarkable unenhanced appearance. PANCREAS: The pancreas has an unremarkable unenhanced appearance. ADRENAL GLANDS: Unremarkable. KIDNEYS/RETROPERITONEUM: No renal calculi are identified. There is no hydronephrosis. No ureteral dilatation or ureteral stone. LYMPH NODES: Small, small bowel mesentery lymph nodes. No enlarged lymph nodes. VASCULATURE: The abdominal aorta is normal in caliber. MESENTERY/PERITONEUM: No free fluid. No masses. There is no free intraperitoneal gas. STOMACH: Normal SMALL BOWEL: Difficult to evaluate due to lack of oral and IV contrast and paucity of intra-abdominal fat. There is questionable circumferential wall thickening of the proximal small bowel in the left side of the abdomen for example axial image 34 series 3 and coronal reconstructed image 22. COLON: The colon is unremarkable. APPENDIX: Normal. URINARY BLADDER/PELVIC ORGANS: The urinary bladder is unremarkable. Uterus and adnexa are unremarkable. BONES / SOFT TISSUES: No suspicious bony or soft tissue abnormalities. CT/CT abdomen pelvis wo IV con IMPRESSION: Normal-appearing kidneys, ureters and bladder. No stone or hydronephrosis. Question mild wall thickening of the proximal small bowel/enteritis. Electronically signed by: Sybil Longoria MD 09/28/2025 01:01 PM [facility]
[2025-09-28 09:41] VITALS: BP 119/57; PULSE 66; RESP 16; TEMP 36.7; O2SAT 100; BMI 27.6
[2025-09-28 10:12] LABS: MANUAL DIFF FLAG NO
[2025-09-28 10:14] LABS: Hematocrit 37.1 % (37.0-47.0); Hemoglobin 12.6 g/dl (12.0-16.0); Imm Gran Abs Auto 0.04 X10*3/uL (0.00-0.03); Imm Gran Pct Auto 0.4 % (0.0-0.4); Lymphocytes Absolute Auto 1.5 X10*3/uL (1.2-4.9); Mean Corpuscular HGB Conc 34.0 g/dl (31.0-35.0); Mean Corpuscular Hemoglobin 32.2 pg (27.0-33.0); Mean Corpuscular Volume 94.9 fL (80.0-98.0); NRBC Abs Auto 0.000 X10*3/uL (0.0-0.012); NRBC Pct Auto 0.0 /100WBC (0.0-0.2); Platelet Count 195 X10*3/uL (160-400); Red Blood Count 3.91 X10*6/uL (4.20-5.50); White Blood Count 9.1 X10*3/uL (4.8-10.8)
--- NOTE | 2025-09-28 10:14 | PC.NURSE ---
pt is alert and oriented, skin appropriate for ethnicity, respirations even and unlabored, pt is reporting left lower abd and nausea x2 days, no diarrhea or constipation per pt , bowel sounds hyperactive soft but quite tender on left lower
[2025-09-28 10:15] LABS: Appearance Urine Clear; Glucose Urine UA Negative (Negative); PH 5.5 (5.0-9.0); Specific Gravity - Urine 1.020 (1.005-1.025)
[2025-09-28 10:32] LABS: Alanine Aminotransferase 20 U/L (0-31); Albumin Level 4.0 g/dL (3.5-5.0); Alkaline Phosphatase 59 U/L (39-117); Anion Gap 9 (12-20); Aspartate Amino Transferase 13 U/L (5-31); Blood Urea Nitrogen 15 mg/dL (9-16); Calcium 8.5 mg/dL (8.4-10.2); Carbon Dioxide 27 mmol/L (22-29); Chloride 110 mmol/L (96-108); Creatinine Clr Calc Pharmacy 74.0; Estimated Glomerular Filt Rate > 60; Lipase 10 U/L (8-78); Potassium 3.9 mmol/L (3.3-5.1); Sodium 142 mmol/L (135-145); Total Protein 6.2 g/dL (6.5-8.0)
--- NOTE | 2025-09-28 11:35 | ED.ABDPAIN ---
HPI - Abdominal Pain General Chief Complaint: Abdominal Pain Stated Complaint: l side pain Time Seen by Provider: 09/28/25 11:26 Source: patient Mode of arrival: ambulatory Limitations: no limitations History of Present Illness HPI narrative: this is a 35 years old female presented to the emergency department complaining of left flank pain for about 2 days, nausea but no vomiting no diarrhea. MD elicited complaint: flank pain Pertinent past history: none Onset (ago): day(s) (2) Pain Consistency: constant Location: L flank Severity: moderate Quality: cramping Radiation: none Migration to: no migration Exacerbating factors: nothing Related Data Patient : No Home Medications ?Medication ?Instructions ?Recorded ?Confirmed clonidine HCl 0.1 mg tablet 1 tab PO BID PRN anxiety 01/29/21 01/29/21 hydroxyzine HCl 25 mg tablet 1 tab PO DAILY PRN anxiety 01/29/21 01/29/21 Previous Rx's ?Medication ?Instructions ?Recorded promethazine 25 mg tablet 25 mg PO Q6H PRN headache, 05/24/21 nausea, vomiting #14 tabs cefuroxime axetil 500 mg tablet 500 mg PO BID 7 days #14 tabs 06/20/21 fluconazole 150 mg tablet 150 mg PO DAILY #1 tab 06/20/21 (Diflucan) phenazopyridine 100 mg tablet 100 mg PO TID PRN pain 6 doses #6 06/20/21 (Pyridium) tabs acetaminophen 300 mg-codeine 30 mg 1 tab PO Q8H PRN pain #10 tabs 04/17/22 tablet cyclobenzaprine 10 mg tablet 10 mg PO Q8H PRN Muscle spasm #14 04/17/22 tabs acetaminophen 500 mg tablet 1,000 mg (2 x 500 mg) PO TID PRN 01/03/23 pain #20 tabs diphenhydramine HCl 25 mg capsule 50 mg (2 x 25 mg) PO BEDTIME PRN 01/03/23 (Aler-Cap) allergy symptoms #14 caps ibuprofen 600 mg tablet 600 mg PO Q6H PRN fever or pain 01/03/23 #20 tabs oxymetazoline 0.05 % nasal mist 2 spray intranasal Q12H PRN nasal 01/03/23 congestion 4 days #15 mL doxycycline hyclate 100 mg capsule 100 mg PO BID 7 days #14 caps 09/07/23 hydrocodone 5 mg-acetaminophen 325 1 tab PO Q6H PRN pain #10 tabs 09/07/23 mg tablet mupirocin 2 % topical ointment 1 appl topical BID 7 days #15 grams 09/07/23 cefuroxime axetil 250 mg tablet 250 mg PO BID #13 tabs 04/09/25 fluconazole 200 mg tablet 200 mg PO ONCE #1 tab 04/09/25 (Diflucan) phenazopyridine 100 mg tablet 100 mg PO TID PRN pain 6 doses #6 04/09/25 tabs doxycycline hyclate 100 mg tablet 100 mg PO BID 7 days #14 tabs 04/19/25 Allergies Allergy/AdvReac Type Severity Reaction Status Date / Time aspirin (ASPIRIN) AdvReac Mild STOMACH Verified 09/28/25 09:43 UPSET From COMPAZINE Allergy Unknown AGITATION Uncoded 06/20/21 05:57 Review of Systems Constitutional: Reports no additional constitutional complaints Cardiovascular: Reports no additional cardiovascular complaints Psychiatric: Reports no additional psychiatric complaints [facility] Past Medical History Attestation statement: The following information was validated with the patient. [facility] Narrative: Denies any major medical problems Medical History Urinary tract infection Skin cancer Social History Social History Alcohol intake: current Alcohol intake frequency: a few times a month Patient Tobacco Use Status: Current everyday Tobacco user Smoked in Last 30 Days: Yes Use of substances other than those prescribed or required for medical reasons: No Substance Use Type: Heroin Advance Directives: No Advance Directives Information Provided: Yes Patient : No Physical Exam ED Exam Exam: no acute distress comfor Vital Signs: Vital Signs - 24 hr 09/28/25 09:41 09/28/25 11:54 09/28/25 13:47 Temperature 98.0 F 97.7 F 97.7 F Pulse Rate 66 74 58 Respiratory Rate 16 18 Blood Pressure 119/57 L 104/62 118/68 Pulse Oximetry 100 100 100 Oxygen Delivery Method Room Air Room Air Room Air BMI result Body Mass Index 27.6 Const General: cooperative Nutritional Appearance: well nourished Orientation/consciousness: patient oriented x3 Limitations: no limitations HENMT Head: Yes normal to inspection General nose exam: Normal external nose present Neck Neck: Yes normal visual inspection Chest Chest palpation & inspection: normal inspection of the chest Resp Effort & Inspection: normal respiratory effort Auscultation: clear to auscultation bilaterally Cardio Jugular venous distension: no JVD Rate: regular rate Rhythm: regular rhythm GI Inspection: Yes normal to inspection Palpation (GI): Soft to palpation Percussion: Yes Other ( left flank tenderness) Skin General skin exam: no rashes or lesions noted, elasticity normal and turgor normal Neuro General: patient oriented x3 Course Reevaluation(s) Reevaluation #1: workup is now completed essentially normal including a CT scan labs urinalysis her abdomen remained soft no peritoneal signs I think at this point we could discharge the patient home she is comfortable with the plan of care etiology of the pain unclear Time: 15:16 Medical Decision Making Medical Decision Making [facility] Narrative: patient is here with a left flank pain we will obtain labs UA 15:18 labs showed a normal white count negative UA negative test abdomen remained soft and nontender, urinalysis shows no evidence of infection, at this point I think she can be discharged home. Differential Diagnosis Differential Diagnoses: The differential diagnosis associated with the presentation includes kidney stone/ pyelonephritis/diverticulitis Admission/Observation Consideration of admission/observation: Escalation of care including admission/observation considered Lab Data [facility] Lab Attestation statement: I reviewed the patient's lab results. 09/28/25 10:06 09/28/25 10:06 Labs: Lab Results 09/28/25 Range/Units 10:06 WBC 9.1 (4.8-10.8) X10*3/uL RBC 3.91 L (4.20-5.50) X10*6/uL Hgb 12.6 (12.0-16.0) g/dl Hct 37.1 (37.0-47.0) % MCV 94.9 (80.0-98.0) fL MCH 32.2 (27.0-33.0) pg MCHC 34.0 (31.0-35.0) g/dl RDW 12.9 (11.0-16.0) % Plt Count 195 (160-400) X10*3/uL MPV 9.5 (9.4-12.3) fL Immature Gran % (Auto) 0.4 (0.0-0.4) % Neut % (Auto) 75.6 H (45-73) % Lymph % (Auto) 17.0 L (20-40) % [place] % (Auto) 5.1 (2-11) % Eos % (Auto) 1.5 (0-4) % Baso % (Auto) 0.4 (0-2) % Lymph # (Auto) 1.5 (1.2-4.9) X10*3/uL [place] # (Auto) 0.5 (0.1-1.2) X10*3/uL Eos # (Auto) 0.1 (0.0-0.4) X10*3/uL Baso # (Auto) 0.0 (0.0-0.2) X10*3/uL Abs Immat Gran (auto) 0.04 H (0.00-0.03) X10*3/uL Absolute Neuts (auto) 6.9 (2.0-8.3) x10*3/uL Absolute Nucleated RBC 0.000 (0.0-0.012) X10*3/uL Nucleated RBC % (auto) 0.0 (0.0-0.2) /100WBC Sodium 142 (135-145) mmol/L Potassium 3.9 (3.3-5.1) mmol/L Chloride 110 H (96-108) mmol/L Carbon Dioxide 27 (22-29) mmol/L Anion Gap 9 L (12-20) BUN 15 (9-16) mg/dL Creatinine 0.76 (0.5-1.4) mg/dL Estim Creat Clear Calc 74.0 Estimated GFR > 60 Random Glucose 100 (60-115) mg/dL Calcium 8.5 D (8.4-10.2) mg/dL Total Bilirubin 0.3 (0.0-1.0) mg/dL AST 13 (5-31) U/L ALT 20 (0-31) U/L Alkaline Phosphatase 59 (39-117) U/L Total Protein 6.2 L (6.5-8.0) g/dL Albumin 4.0 (3.5-5.0) g/dL Lipase 10 (8-78) U/L Urine Color Yellow Urine Appearance Clear Urine pH 5.5 (5.0-9.0) Ur Specific [place] 1.020 (1.005-1.025) Urine Protein Negative (Neg-Trace) mg/dL Urine Glucose (UA) Negative (Negative) mg/dL Urine Ketones Negative (Negative) mg/dL Urine Blood Negative (Negative) Urine Nitrite Negative (Negative) Ur Leukocyte Esterase Negative (Negative) Urine Test NEGATIVE (NEGATIVE) Independent Interpretation I performed an independent interpretation of an: CT Scan Interpretation: not acute disease Radiology Impression Discussion of test interpretation with radiology: I have reviewed the radiologist's reading. Radiologist Impression: I reviewed the radiology reading of the CT was read as a question mild wall thickening of the bowel wall/enteritis but does not fit clinically with the presentation she does not have any diarrhea or vomiting. Medications Administered Discontinued Medications Generic Name Dose Route Start Last Admin Trade Name Freq PRN Reason Stop Dose Admin Sodium Chloride 1,000 mls @ 999 mls/hr 09/28/25 11:45 09/28/25 14:18 Ns IVCONT 09/28/25 12:45 Infused .Q1H1M MARYBETH Infusion Ketorolac Tromethamine 15 mg 09/28/25 11:38 09/28/25 11:55 Ketorolac Tromethamine 15 Mg/Ml Vial IVPUSH 09/28/25 11:39 15 mg ONCE ONE Administration Oxycodone HCl 5 mg 09/28/25 14:03 09/28/25 14:22 Oxycodone Hcl Immed Release 5 Mg Tablet PO 09/28/25 14:04 5 mg ONCE ONE Administration Discharge Plan Discharge Clinical Impression: Abdominal pain Patient Disposition: Home, Self-Care Instructions: Abdominal Pain (ED) Additional Instructions: Follow-up with your primary care physician return to the emergency room if worse Prescriptions: No Action clonidine HCl 0.1 mg tablet 1 tab PO BID PRN (Reason: anxiety) hydroxyzine HCl 25 mg tablet 1 tab PO DAILY PRN (Reason: anxiety) promethazine 25 mg tablet 25 mg PO Q6H PRN (Reason: headache, nausea, vomiting) Qty: 14 0RF phenazopyridine [Pyridium] 100 mg tablet 100 mg PO TID PRN (Reason: pain) Qty: 6 0RF cefuroxime axetil 500 mg tablet 500 mg PO BID 7 Days Qty: 14 0RF fluconazole [Diflucan] 150 mg tablet 150 mg PO DAILY Qty: 1 0RF cyclobenzaprine 10 mg tablet 10 mg PO Q8H PRN (Reason: Muscle spasm) Qty: 14 0RF acetaminophen-codeine 300-30 mg tablet 1 tab PO Q8H PRN (Reason: pain) Qty: 10 0RF diphenhydramine HCl [Aler-Cap] 25 mg capsule 50 mg PO BEDTIME PRN (Reason: allergy symptoms) Qty: 14 0RF oxymetazoline 0.05 % mist 2 spray intranasal Q12H PRN (Reason: nasal congestion) 4 Days Qty: 15 0RF ibuprofen 600 mg tablet 600 mg PO Q6H PRN (Reason: fever or pain) Qty: 20 0RF acetaminophen 500 mg tablet 1,000 mg PO TID PRN (Reason: pain) Qty: 20 0RF phenazopyridine 100 mg tablet 100 mg PO TID PRN (Reason: pain) Qty: 6 0RF cefuroxime axetil 250 mg tablet 250 mg PO BID Qty: 13 0RF fluconazole [Diflucan] 200 mg tablet 200 mg PO ONCE Qty: 1 0RF doxycycline hyclate 100 mg tablet 100 mg PO BID 7 Days Qty: 14 0RF doxycycline hyclate 100 mg capsule 100 mg PO BID 7 Days Qty: 14 0RF hydrocodone-acetaminophen 5-325 mg tablet 1 tab PO Q6H PRN (Reason: pain) Qty: 10 0RF Rx Instructions: partial fill okay; Partial Fill upon patient request. mupirocin 2 % ointment 1 appl topical BID 7 Days Qty: 15 0RF Referrals: [facility] [Primary Care Provider, Medical] - 09/29/25 Print Language: [place]
[2025-09-28 11:54] VITALS: BP 104/62; PULSE 74; RESP 18; TEMP 36.5; O2SAT 100
[2025-09-28 11:56] LABS: UPreg QC Valid YES
--- NOTE | 2025-09-28 12:47 | PC.NURSE ---
pt is currently sound asleep, respirations even and unlabored
--- OUTSIDE RECORDS SUMMARY | 2025-09-28 13:06 | XMS_ITS | Encounter Summary ---
Author Organization [employer] Address [address] [facility] 7[address] [place] [address] Care Team Providers Care Hoop Maker Helper Machine Name Role Phone Valorie Sage JERROD Primary Care Provider [phone] Ashley Bautista MD Primary Care Pro vider Encounter Details Date Type Department Care Team ([facility] st Contact Info) Description 11/03/2022 Orders Only [facility] [address] [place] [address] Tiffany Main LPN Social History Tobacco Use Types Packs/Day Years Used Date Smoking Tobacco: Never Assessed Comments Unknown Sex and Gender Information Value Date Recorded Sex Assigned at Female 09/15/2022 10:14 AM EDT Legal Sex Female 10:14 AM EDT Gender Identity Female 09/15/2022 10:14 AM EDT Sexual Orientation Straight 09/15/2022 10 :14 AM EDT COVID-19 Exposure Response Date Recorded In the last 10 days, have yo u been in contact with someone who was confirmed or suspected to have Coronavirus/COVID-19? No / Unsure 10/22/2022 1:09 PM EST documented as of this encounter Plan of Treatment Not on file documented as of this encounter Procedures Procedure Name Priority Date/Time Associated Diagnosis Comments MONONUCLEOSIS TEST, QUALITATIVE Routine 01/03/2023 2:03 PM EST STREP A NUCLEIC ACID Routine 01/03/2023 12:02 PM EST SARS COV2/INFLUENZA A/B AND RSV RNA QL NAAT Routine 01/03/2023 12:01 PM EST documented in this encounter Results * Mononucleosis screen (01/03/2023 2:03 PM EST) Monotest Negative Negative [facility] 01/03/2023 2:03 PM EST 01/03/2023 2:06 PM EST [facility] External Provider LAB BLO OD ORDERABLES Final Result Performing Organization Address [facility] de Phone Number [facility] [address] [place] [address] [phone] * Strep A Nucleic Acid (01/03/2023 12:02 PM EST) IDNOW SERIAL# [id number] [facility] Strep A Nucleic Acid Negative Negative [facility] Comment:All test results mus t be correlated with clinical findings.This test has not been evaluated for monitoring treatment ofinfection.Additional follow-up testing using the culture method isrequired if the result is negative and clinical symptomspersist, or in the event of an acute rheumatic feveroutbreak. 01/03/2023 12:0 2 PM EST 01/03/2023 12:05 PM EST [facility] Exter nal Provider LAB MICROBIOLOGY - GENERAL ORDERABLES Final Result Performing Organization Address [facility] de Phone Number [facility] [address] [place] [phone] * SARS-CoV-2 RNA, Influenza A/B, and RSV RNA, Ql NAAT (01/03/2023 12:01 PM EST) Influenza A PCR NEGATIVE Negative [facility] Influenza B PCR NEGATIVE Negative [facility] Resp Syncy Virus RNA Qual PCR NEGATIVE Negative [facility] SARS COV2 PCR NEGATIVE Negative [facility] SARS/Flu/RSV Note See Note [facility] Comment:All test results mus t be correlated with clinical findings.Negative results do not preclude SARS-CoV2, influenza Avirus, influenza B virus and/or RSV infectionand should not be used as the sole basis for treatment orother patient management decisions. Negative results must becombined with clinical observations, patient history, andepidemiological information.This test has not been evaluated for monitoring treatment ofinfection.This test has been authorized by the FDA under an EmergencyUse Authorization (EUA) for use by authorized laboratories.Testing performed on the [employer] GeneXpert utilizingreal-time RT-PCR.All SARS CoV2 and positive influenza A/B results arereported to [facility]. 01/03/2023 12:0 1 PM EST 01/03/2023 12:05 PM EST [facility] Exter nal Provider LAB MICROBIOLOGY - GENERAL ORDERABLES Final Result [facility] [address] [place] [phone] [phone] documented in this encounter Visit Diagnoses Not on filedocumented in this encounter Care Teams Hoop Maker Helper Machine Relationship Specialty Start Date End Date Valorie Sage FNP [address] [place] [address] PCP - General Family Medicine 07/13/22 01/20/24 Ashley Bautista MD [address] [place] [address] PCP - General Internal Medicine 01/21/24 documented as of this encounter
--- OUTSIDE RECORDS SUMMARY | 2025-09-28 13:06 | XMS_ITS | Encounter Summary ---
Author Organization [employer] Address [address] [facility] [address] [place] [address] Care Team Providers Care Associate Professor Of Theatre Name Role Phone Ashley Bautista MD Primary Care Pro vider Encounter Details Date Type Department Care Team (Late st Contact Info) Description 09/28/2025 Orders Only GENERIC EXTERNAL DATA DEPARTMENT Provider, Generic External Data Social History Tobacco Use Types Packs/Day Years Used Date Smoking Tobacco: Every Day Cigarettes Passive Smoke Exposure: Current Smokeless Tobacco: Never Alcohol Use Standard Drinks/Week Comments Not Currently 0 (1 standard drink = 0.6 oz pur e alcohol) Depression Answer Date Recorded Patient Health Questionnaire-9 Score 8 04/27/2025 Patient Health Questionnaire-9 Score 8 04/27/2025 Last PHQ-9: Questionnaire Data Not on file 0 04/27/2025 Housing Stability Answer Date Recorded What is your housing situation today? I have gali tiwari 04/20/[address] you li ve. Do you have problems with any of the following? None of the above 04/20/2025 Food Insecurity Answer Date Recorded Within the past 12 months, y ou worried that your food would run out before you got money to buy more: Never True 04/20/2025 Within the past 12 months,th e food you bought just didn't last and you didn't have enough money to get more: Never True 03/2025 Transportation Answer Date Recorded In the past 12 months, has l ack of transportation kept you from medical appts, meetings, work or from getting things needed for daily living? No 04/20/2025 Utilities Answer Date Recorded In the past 12 months, has t he electric, gas, oil or water company threatened to shut off services in your home? No 04/20/2025 Depression Answer Date Recorded Patient Health Questionnaire-2 Score 2 04/27/2025 Internet Access Answer Date Recorded Internet Access Q1 Yes 04/20/2025 Internet Access Q2 Not on file 04/20/2025 Comments Unknown Sex and Gender Information Value Date Recorded Sex Assigned at Female 09/15/2022 10:14 AM EDT Legal Sex Female 10:14 AM EDT Gender Identity Female 09/15/2022 10:14 AM EDT Sexual Orientation Straight 09/15/2022 10 :14 AM EDT documented as of this encounter Plan of Treatment Not on file documented as of this encounter Procedures Procedure Name Priority Date/Time Associated Diagnosis Comments CT ABDOMEN PELVIS WO CONTRAST Routine 09/28/2025 12:12 PM EST CBC WITH AUTO DIFFERENTIAL Routine 09/28/2025 10:06 AM EST HCG, QL, URINE Routine 09/28/2025 10:06 AM EST URINALYSIS WITH REFLEX MICROSCOPIC Routine 09/28/2025 10:06 AM EST LIPASE Routine 09/28/2025 10:06 AM EST COMPREHENSIVE METABOLIC PANEL Routine 09/28/2025 10:06 AM EST documented in this encounter Results * CT Abdomen Pelvis w/o Contrast (09/28/2025 12:12 PM EST) Anatomical Region Laterality Modality Body, Pelvis, Abdomen Computed T omography 09/28/2025 12:1 2 PM EST Narrative 09/28/2025 1:04 PM EST [place] [address] CT Scan Report Signed Patient: Florence Olson MR#: [id number] : 1990 Acct:[id number] Age/Sex: 35 / F ADM Date: 09/28/25 Loc: HO.ED Attending Dr: Ordering Physician: Trenton Yo MD Date of Service: 09/28/25 Procedure(s): CT abdomen pelvis wo IV con Accession Number(s): [id number] cc: Trenton Yo MD; [facility] Report Number: [id number]: Total DLP = 314.00 mGy-cm Reason for Exam: left flank pain EXAMINATION: CT ABDOMEN PELVIS WITHOUT IV CONTRAST HISTORY: left flank pain COMPARISON: Previous CT of the abdomen and pelvis September 2020 TECHNIQUE: CT scan of the abdomen and pelvis was performed without contrast using standard departmental protocol. Coronal and sagittal reformatted images were generated and reviewed. This CT exam was performed with one or more of the following dose reduction techniques: automated exposure control, adjustment of the mA and/or kV according to patient size, use of iterative reconstruction technique. DLP: 314 mGy-cm FINDINGS: LOWER CHEST: The visualized lung bases are clear. There is no pleural effusion. CARDIOVASCULATURE: The heart is normal in size. There is no pericardial effusion. LIVER: The liver is prominent right lobe measuring 20 cm in length. The liver has an unremarkable unenhanced appearance. No focal lesion. GALLBLADDER / BILE DUCTS: The gallbladder is unremarkable. There is no intra or extrahepatic biliary ductal dilatation. SPLEEN: The spleen is normal in size and has an unremarkable unenhanced appearance. PANCREAS: The pancreas has an unremarkable unenhanced appearance. ADRENAL GLANDS: Unremarkable. KIDNEYS/RETROPERITONEUM: No renal calculi are identified. There is no hydronephrosis. No ureteral dilatation or ureteral stone. LYMPH NODES: Small, small bowel mesentery lymph nodes. No enlarged lymph nodes. VASCULATURE: The abdominal aorta is normal in caliber. MESENTERY/PERITONEUM: No free fluid. No masses. There is no free intraperitoneal gas. STOMACH: Normal SMALL BOWEL: Difficult to evaluate due to lack of oral and IV contrast and paucity of intra-abdominal fat. There is questionable circumferential wall thickening of the proximal small bowel in the left side of the abdomen for example axial image 34 series 3 and coronal reconstructed image 22. COLON: The colon is unremarkable. APPENDIX: Normal. URINARY BLADDER/PELVIC ORGANS: The urinary bladder is unremarkable. Uterus and adnexa are unremarkable. BONES / SOFT TISSUES: No suspicious bony or soft tissue abnormalities. CT/CT abdomen pelvis wo IV con IMPRESSION: Normal-appearing kidneys, ureters and bladder. No stone or hydronephrosis. Question mild wall thickening of the proximal small bowel/enteritis. Electronically signed by: Sybil Longoria MD 09/28/2025 01:01 PM [facility] Dictated By: Sybil Longoria MD Signed By: <Electronically signed by Sybil Longoria MD in OV> 09/28/25 1301 DD/ 1212 TD/TT: 09/28/25 1222 Code Enforcement Inspector: KELLY Procedure Note Donotuseinterpreter, Image - 09/28/[address] [address] [address] Scan Report Signed Patient: Florence Olson AMR#: [id number] : 1990Acct:[id number] Age/Sex: 35 / FADM Date: 09/28/25 Loc: HO.ED Attending Dr: Ordering Physician: Trenton Yo MD Date of Service: 09/28/25 Procedure(s): CT abdomen pelvis wo IV con Accession Number(s): [id number] cc: Trenton Yo MD; [facility] Report Number: [id number]: Total DLP = 314.00 mGy-cm Reason for Exam: left flank pain EXAMINATION: CT ABDOMEN PELVIS WITHOUT IV CONTRAST HISTORY: left flank pain COMPARISON: Previous CT of the abdomen and pelvis September 2020 TECHNIQUE: CT scan of the abdomen and pelvis was performed without contrast using standard departmental protocol. Coronal and sagittal reformatted images were generated and reviewed. This CT exam was performed with one or more of the following dose reduction techniques: automated exposure control, adjustment of the mA and/or kV according to patient size, use of iterative reconstruction technique. DLP: 314 mGy-cm FINDINGS: LOWER CHEST: The visualized lung bases are clear. There is no pleural effusion. CARDIOVASCULATURE: The heart is normal in size. There is no pericardial effusion. LIVER: The liver is prominent right lobe measuring 20 cm in length. The liver has an unremarkable unenhanced appearance. No focal lesion. GALLBLADDER / BILE DUCTS: The gallbladder is unremarkable. There is no intra or extrahepatic biliary ductal dilatation. SPLEEN: The spleen is normal in size and has an unremarkable unenhanced appearance. PANCREAS: The pancreas has an unremarkable unenhanced appearance. ADRENAL GLANDS: Unremarkable. KIDNEYS/RETROPERITONEUM: No renal calculi are identified. There is no hydronephrosis. No ureteral dilatation or ureteral stone. LYMPH NODES: Small, small bowel mesentery lymph nodes. No enlarged lymph nodes. VASCULATURE: The abdominal aorta is normal in caliber. MESENTERY/PERITONEUM: No free fluid. No masses. There is no free intraperitoneal gas. STOMACH: Normal SMALL BOWEL: Difficult to evaluate due to lack of oral and IV contrast and paucity of intra-abdominal fat. There is questionable circumferential wall thickening of the proximal small bowel in the left side of the abdomen for example axial image 34 series 3 and coronal reconstructed image 22. COLON: The colon is unremarkable. APPENDIX: Normal. URINARY BLADDER/PELVIC ORGANS: The urinary bladder is unremarkable. Uterus and adnexa are unremarkable. BONES / SOFT TISSUES: No suspicious bony or soft tissue abnormalities. CT/CT abdomen pelvis wo IV con IMPRESSION: Normal-appearing kidneys, ureters and bladder. No stone or hydronephrosis. Question mild wall thickening of the proximal small bowel/enteritis. Electronically signed by: Sybil Longoria MD 09/28/2025 01:01 PM EST Dictated By: Sybil Longoria MD Signed By: <Electronically signed by Sybil Longoria MD in OV> 09/28/25 1301 DD/ 1212 TD/TT: 09/28/25 1222 Code Enforcement Inspector: KELLY [employer]uru Provider Result Type Result [facility] External Provider IMG CT PROCEDURES Final Result * HCG, Qualitative, Urine (09/28/2025 10:06 AM EST) Urine NEGATIVE NEGATIVE [facility] Comment:This test was develo ped to detect early . Falsenegative results may occur after the 5th - 7th week ofpregnancy when using this test method. If clinicallyindicated, consider a serum hCG. 09/28/2025 10:0 6 AM EST 09/28/2025 11:52 AM EST us Generic External Data Provider LAB URINE ORDERAB LES Final Result Performing Organization Address City/[facility]/ZIP Co de Phone Number [facility] [address] [place] [phone] [phone] * Lipase (09/28/2025 10:06 AM EST) Lipase 10 8 - 78 U/L [facility] 09/28/2025 10:0 6 AM EST 09/28/2025 10:10 AM EST Generic External Data Provider LAB BLOOD ORDERAB LES Final Result Performing Organization Address [facility] Co de Phone Number [facility] [address] [place] [phone] * (ABNORMAL) Comprehensive Metabolic Panel (09/28/2025 10:06 AM EST) Sodium 142 135 - 145 mmol/L [facility] Potassium 3.9 3.3 - 5.1 mmol/L [facility] Chloride 110(H) 96 - 108 mmol/L [facility] Carbon Dioxide 27 22 - 29 mmol/L [facility] Anion Gap 9(L) 12 - 20 [facility] Urea Nitrogen (BUN) 15 9 - 16 mg/dL [facility] Creatinine, Serum 0.76 0.5 - 1.4 mg/dL [facility] Creatinine Clr Calc Pharmacy 74.0 [facility] Comment:Provided height and weight: 144.78 cm,57.8 kg.eGFR (calculated from the MDRD study equation) and eCrCl(calculated from the Cockcroft-Gault equation) are based ondifferent parameters and may not yield comparable results.If eCrCl result is absurd, please check patient'sheight/weight. Estimated Glomerular Filt Rate >60 [facility] Comment:Chronic Kidney Disea se: Estimated GFR < 60 mL/min/1.21z5Evwaig Kidney Disease: Estimated GFR < 15 mL/min/1.73m2 Glucose 100 60 - 115 mg/dL [facility] Calcium 8.5 8.4 - 10.2 mg/dL [facility] Bilirubin, Total 0.3 0.0 - 1.0 mg/dL [facility] Aspartate Amino Transferase 13 5 - 31 U/L [facility] Alanine Aminotransferase 20 0 - 31 U/L [facility] Total Protein 6.2(L) 6.5 - 8.0 g/dL [facility] Albumin Level 4.0 3.5 - 5.0 g/dL [facility] Alkaline Phosphatase 59 39 - 117 U/L [facility] 09/28/2025 10:0 6 AM EST 09/28/2025 10:10 AM EST us Generic External Data Provider LAB BLOOD ORDERAB LES Final Result Performing Organization Address [facility]/ZIP Co de Phone Number [facility] [address] [place] [phone] * Urinalysis w/reflex microscopic (09/28/2025 10:06 AM EST) Color Urine Yellow [facility] Appearance Urine Clear [facility] PH 5.5 5.0 - 9.0 [facility] Glucose Urine UA Negative Negative mg/dL [facility] Urine Blood Negative Negative [facility] Specific [place] - Urine 1.020 1.005 - 1.025 [facility] Urine Protein Negative Neg-Trace mg/dL [facility] Urine Ketones Negative Negative mg/dL [facility] Nitrite Urine Negative Negative [facility] Leukocyte Esterase Urine Negative Negative [facility] 09/28/2025 10:0 6 AM EST 09/28/2025 10:10 AM EST Narrative [facility] - 09/28/2025 10:16 AM EST [id number], [employer] us Generic External Data Provider LAB URINE ORDERAB LES Final Result Performing Organization Address City/[facility]/ZIP Co de Phone Number [facility] [address] [place] [phone] * (ABNORMAL) CBC auto differential (09/28/2025 10:06 AM EST) White Blood Count 9.1 4.8 - 10.8 X10*3/uL [facility] Red Blood Count 3.91(L) 4.20 - 5.50 X10*6/uL [facility] Hemoglobin 12.6 12.0 - 16.0 g/dl [facility] Hematocrit 37.1 37.0 - 47.0 % [facility] Mean Corpuscular Volume 94.9 80.0 - 98.0 fL [facility] Mean Corpuscular Hemoglobin 32.2 27.0 - 33.0 pg [facility] Mean Corpuscular HGB Conc 34.0 31.0 - 35.0 g/dl [facility] Red Cell Distribution Width 12.9 11.0 - 16.0 % [facility] Platelet Count 195 160 - 400 X10*3/uL [facility] Mean Platelet Volume 9.5 9.4 - 12.3 fL [facility] Neutrophils Percent Auto 75.6(H) 45 - 73 % [facility] Imm Gran Pct Auto 0.4 0.0 - 0.4 % [facility] Lymphocytes Percent Auto 17.0(L) 20 - 40 % [facility] Monocytes Percent Auto 5.1 2 - 11 % [facility] Eosinophils Percent Auto 1.5 0 - 4 % [facility] Basophils Percent Auto 0.4 0 - 2 % [facility] NRBC Pct Auto 0.0 0.0 - 0.2 /100WBC [facility] Neutrophils Absolute Auto 6.9 2.0 - 8.3 x10*3/uL [facility] Imm Gran Abs Auto 0.04(H) 0.00 - 0.03 X10*3/uL [facility] Lymphocytes Absolute Auto 1.5 1.2 - 4.9 X10*3/uL [facility] Monocytes Absolute Auto 0.5 0.1 - 1.2 X10*3/uL [facility] Eosinophils Absolute Auto 0.1 0.0 - 0.4 X10*3/uL [facility] Basophils Absolute Auto 0.0 0.0 - 0.2 X10*3/uL [facility] NRBC Abs Auto 0.000 0.0 - 0.012 X10*3/uL [facility] 09/28/2025 10:0 6 AM EST 09/28/2025 10:10 AM EST us Generic External Data Provider LAB BLOOD ORDERAB LES Final Result [facility] [address] [place] [phone] documented in this encounter Visit Diagnoses Not on filedocumented in this encounter Additional Health Concerns Assessment Noted Time PHQ-9 Depression Total Score: 8 04/27/20 25 2:57 PM EDT documented as of this encounter Care Teams Associate Professor Of Theatre Relationship Specialty Start Date End Date Ashley Bautista MD [address] [place] [address] PCP - General Internal Medicine 01/21/24 documented as of this encounter
--- OUTSIDE RECORDS SUMMARY | 2025-09-28 13:06 | XMS_ITS | Encounter Summary ---
Author Organization [employer] Address [address] [facility] [address] [place] [address] Care Team Providers Care Overlock Sewing Machine Operator Name Role Phone Valorie Sage Primary Care Provider [phone] Ashley Bautista MD Primary Care Pro vider Reason for Visit * Reason Comments Med Refill Encounter Details Date Type Department Care Team ([facility] st Contact Info) Description 12/18/2022 Refill [facility] [address] [place] [address] Valorie Sage FNP [address] [place] [address] Social History Tobacco Use Types Packs/Day Years [...] on file documented as of this encounter Visit Diagnoses Not on filedocumented in this encounter Care Teams Overlock Sewing Machine Operator Relationship Specialty Start Date End Date Valorie Sage FNP [address] [place] [address] PCP - General Family Medicine 07/13/22 01/20/24 Ashley Bautista MD [address] [place] [address] PCP - General Internal Medicine 01/21/24 documented as of this encounter
--- OUTSIDE RECORDS SUMMARY | 2025-09-28 13:06 | XMS_ITS | Clinical Summary ---
Author Organization [employer] Address [address] [facility] 7t [place] [address] Care Team Providers Care Filling Hauler Name Role Phone Ashley Bautista MD Primary Care Pro vider Allergies Active Allergy Reactions Criticality Noted Date Comments Prochlorperazine 10/13/2012 Other reaction(s): Irritable, Irritable Medications * This document contains information received from the source organization and may not represent a complete record from that organization. acetaminophen (Tylenol) 500 MG tabletIndicati ons:Throat pain in adult Take 2 tablets (1,000 mg) by mouth every 6 (six) hours if needed for moderate pain or fever for up to 25 doses. 50 tablet 01/01/20 23 Active nicotine (Nicoderm CQ) 14 MG/24HR patchIndicatio ns:Tobacco dependence Place 1 patch on the skin 1 (one) time each day at the same time. 42 patch 01/01/20 23 Active naproxen (Naprosyn) 500 MG tabletIndicati ons:Pain TAKE 1 TABLET BY MOUTH TWICE A DAY WITH FOOD NEEDED FOR PAIN 60 tablet 2 12/01/19 24 Active Suboxone 8-[address] 3 FILMS SUBLINGUALLY DAILY 04/21/20 25 Active topiramate (Topamax) 25 MG tablet Take 1 tablet by mouth Once per day. 04/21/20 25 Active albuterol (Ventolin HFA) 108 (90 Base) MCG/ACT inhaler INHALE 2 PUFFS BY MOUTH EVERY 6 HOURS NEEDED DIRECTED 18 g 3 08/04/20 25 Active cloNIDine (Catapres) 0.1 MG tablet TAKE 1 TABLET BY MOUTH EVERY DAY NEEDED FOR ANXIETY 30 tablet 1 08/04/20 25 Active baclofen (Lioresal) 10 MG tabletIndicati ons:Muscle spasm TAKE 1 TABLET BY MOUTH 2 TIMES A DAY NEEDED FOR MUSCLE SPASMS. 30 tablet 09/19/20 25 Active gabapentin (Neurontin) 300 MG capsule TAKE 1 CAPSULE BY MOUTH EVERY DAY 30 capsule 2 09/19/20 25 Active gabapentin (Neurontin) 300 MG capsule Take 1 capsule (300 mg) by mouth Once per day. 30 capsule 05/23/20 25 025 Discontinued baclofen (Lioresal) 10 MG tabletIndicati ons:Muscle spasm TAKE 1 TABLET BY MOUTH 2 TIMES A DAY NEEDED FOR MUSCLE SPASMS. 30 tablet 08/04/20 25 025 Discontinued Active Problems Problem Noted Date Diagnosed Date Health care maintenance 04/28/2025 Opioid use disorder 04/28/2025 Opioid dependence in remission ([facility]) 025 Overweight (BMI 25.0-29.9) 04/27/2025 Primary insomnia 10/07/2024 Assessment & Plan (10/16/2024 11:18 AM EST): Tiral low dose mirtazapine, Awaiting intake from , call into ib Reviewed possible side effects Encouraged sleep hygiene, Ddx includes mood disorder, pt denies si or hi Bipolar 1 disorder ([facility]) 04/17/2021 Hidradenitis suppurativa 09/26/2020 Breast lump 06/03/2018 BROCK (generalized anxiety disorder) 02/27/2014 Resolved Problems Problem Noted Date Diagnosed Date Resolved Date Elevated blood pressure reading 10/07/2024 04/27/2025 Assessment & Plan (10/16/2024 11:18 AM EST): Pt reports usually bp at goal, reviewed importance of follow up for this reading Encounters Date Type Department Care Team Description 09/28/2025 Orders Only GENERIC EXTERNAL DATA DEPARTMENT Provider, Generic External Data 09/18/2025 Refill [facility] [address] [place] [address] Ashley Bautista MD Muscle spasm 08/07/2025 Telephone [facility] [address] [place], [place] [phone] Ashley Sapp MA 08/04/[address] [address] Ashley Bautista MD Muscle spasm 07/06/[address] [address] Ashley Bautista MD No Show 07/05/[address] [address] Ashley Bautista MD chartprep 06/29/2025 Patient Outreach [address] [address] Ashley Bautista MD Pre-visit Planning ([facility] screening was completed on 04/20/2025) from Last 3 Months Immunizations Immunization Administration Dates Next Due DTaP 10/04/1990, 0,03/17/1989,1988,1988 Hep B, Adolescent or Pediatric 03/22/2002,2001,08/13/2001 Hib ([facility]) 03/05/1990 IPV 10/04/1990, 0,01/20/1989,1987 Influenza injectable quadriv alent preservative free 08/01/2022,09/26/2020 MMR 08/13/2001,02/15/1990 Moderna Covid-19 Vaccine 12+ 05/01/2021,04/03/20 21 Moderna Covid-19 Vaccine 6+ Bivalent 10/22/2022 Rabies, IM Diploid Cell Culture 09/07/2023 TD (adult), 2 Lf tetanus tox oid, preservative free, adsorbed 08/13/2001,01/01/1995 Td (adult), 5 Lf tetanus tox oid, preservative free, adsorbed 07/28/2017 Tdap 09/07/2023 Social History Tobacco Use Types Packs/Day Years Used Date Smoking Tobacco: Every Day Cigarettes Passive Smoke Exposure: Current Smokeless Tobacco: Never Tobacco Cessation:Ready to Q uit: Not Asked; Counseling Given: Not Answered Alcohol Use Standard Drinks/Week Comments Not Currently [...] Orientation Straight 09/15/2022 10 :14 AM EDT Last Filed Vital Signs Vital Sign Reading Time Taken Comments Blood Pressure 126/80 04/27/2025 2:11 PM EDT Pulse 103 04/27/2025 2:11 PM EDT Temperature 37.1 C (98.8 F) 04/27/2025 2:11 PM EDT Respiratory Rate 24 04/27/2025 2:11 PM EDT Oxygen Saturation 98% 04/27/2025 2:11 PM EDT Inhaled Oxygen Concentration - - Weight 59.6 kg (131 lb 6.4 oz) 04/27/2025 2:11 P M EDT Height 147.3 cm (4' 10 ) 04/27/2025 2:11 PM EDT Body Mass Index 27.46 04/27/2025 2:11 PM EDT Plan of Treatment Health Maintenance Due Date Last Done Comments HIV Screening 1988 Alcohol/Substance Use Screening 2000 Family Planning (PISQ) 2003 HPV Vaccines (1 - 3-dose series) 2003 Hepatitis C Screening 2006 Pneumococcal Vaccine: Pediatrics (0 to 5 Years) and At-Risk Patients (6 to 49) Years (1 of 2 - PCV) 2007 Pap Smear 2009 Cervical Cancer Screening 2018 HPV/Cotest 2018 COVID-19 Vaccine ( season) 2025 10/22/2022, 05/01/2021, 04/03/2021 Influenza Vaccine (#1) 2025 08/01/2022, 2019 Lipid Panel 04/18/2026 04/18/2021 SDOH Screening 04/20/2026 04/20/2025 Depression Screening 04/27/2026 04/27/2025, 04/27/20 25 Disability Screening 04/27/2026 04/27/2025 Tobacco Screening 04/27/2026 04/27/2025 DTaP/Tdap/Td Vaccines (7 - Td or Tdap) 09/07/2033 09/07/2023, 07/28/2017, 08/13/2001, Additional history exists Zoster Vaccines (1 of 2) 2038 RSV Patients and Patients Aged 60 years or older (1 - 1-dose 75+ series) 2063 HIB Vaccines Completed 03/05/1990 IPV Vaccines Completed 10/04/1990, 02/15, 01/20/1989, Additional history exists Hepatitis B Vaccines Completed 03/22/2002, 11/26/2001, 08/13/2001 Hepatitis A Vaccines Discontinued Meningococcal B Vaccine Aged Out No l onger eligible based on patient's age to complete this topic Meningococcal Vaccine Aged Out No paul carrol eligible based on patient's age to complete this topic RSV under 20 months Aged Out No longe r eligible based on patient's age to complete this topic Rotavirus Vaccines Aged Out No longer eligible based on patient's age to complete this topic Procedures Procedure Name Priority Date/Time Associated Diagnosis Comments CT ABDOMEN PELVIS WO CONTRAST Routine 09/28/2025 12:12 PM EST HCG, QL, URINE Routine 09/28/2025 10:06 AM EST LIPASE Routine 09/28/2025 10:06 AM EST COMPREHENSIVE METABOLIC PANEL Routine 09/28/2025 10:06 AM EST URINALYSIS WITH REFLEX MICROSCOPIC Routine 09/28/2025 10:06 AM EST CBC WITH AUTO DIFFERENTIAL Routine 09/28/2025 10:06 AM EST LIPID PANEL, STANDARD Routine 04/18/2021 2:19 PM EDT from Last 3 Months or Most Recently Relevant to Health Maintenance Results * CT Abdomen Pelvis w/o Contrast (09/28/2025 12:12 PM EST) Anatomical Region Laterality Modality Body, Pelvis, Abdomen Computed T omography 09/28/2025 12:1 2 PM EST Narrative 09/28/2025 1:04 PM EST [place] [address] CT Scan Report Signed Patient: Florence Olson MR#: [id number] : 1990 Acct:[id number] Age/Sex: 35 / F ADM Date: 09/28/25 Loc: HO.ED Attending Dr: Ordering Physician: Trenton Yo MD Date of Service: 09/28/25 Procedure(s): CT abdomen pelvis wo IV con Accession Number(s): [id number] cc: Trenton Yo MD; [facility] Report Number: [id number]: Total DLP = 314.00 mGy-cm Reason for [...] by: Sybil Longoria MD 09/28/2025 01:01 PM [facility] Dictated By: Sybil Longoria MD Signed By: <Electronically signed by Sybil Longoria MD in OV> 09/28/25 1301 DD/ 1212 TD/TT: 09/28/25 1222 [employer] Plans Intelligence Officer: KELLY Procedure Note Donotuseinterpreter, Image - 09/28/[address] [address] [address] Scan Report Signed Patient: Florence Olson AMR#: [id number] : 1990Acct:[id number] Age/Sex: 35 / FADM Date: 09/28/25 Loc: HO.ED Attending Dr: Ordering Physician: Trenton Yo MD Date of Service: 09/28/25 Procedure(s): CT abdomen pelvis wo IV con Accession Number(s): [id number] cc: Trenton Yo MD; [facility] Report Number: [id number]: Total DLP = 314.00 mGy-cm Reason for [...] 09/28/25 1301 DD/ 1212 TD/TT: 09/28/25 1222 [employer]oc Plans Intelligence Officer: KELLY [facility] External Provider IMG CT PROCEDURES Final Result * (ABNORMAL) CBC auto differential (09/28/2025 10:06 AM EST) White Blood Count 9.1 4.8 - 10.8 X10*3/uL [facility] Red Blood Count 3.91(L) 4.20 - 5.50 X10*6/uL [facility] Hemoglobin 12.6 12.0 - 16.0 g/dl [facility] Hematocrit 37.1 37.0 - 47.0 % [facility] Mean Corpuscular Volume 94.9 80.0 - 98.0 fL [facility] Mean Corpuscular Hemoglobin 32.2 27.0 - 33.0 pg [facility] Mean Corpuscular HGB Conc 34.0 31.0 - 35.0 g/dl [facility] Red Cell Distribution Width 12.9 11.0 - 16.0 % [facility] Platelet Count 195 160 - 400 X10*3/uL [facility] Mean Platelet Volume 9.5 9.4 - 12.3 fL [facility] Neutrophils Percent Auto 75.6(H) 45 - 73 % [facility] Imm Gran Pct Auto 0.4 0.0 - 0.4 % [facility] Lymphocytes Percent Auto 17.0(L) 20 - 40 % [facility] Monocytes Percent Auto 5.1 2 - 11 % [facility] Eosinophils Percent Auto 1.5 0 - 4 % [facility] Basophils Percent Auto 0.4 0 - 2 % [facility] NRBC Pct Auto 0.0 0.0 - 0.2 /100WBC [facility] Neutrophils Absolute Auto 6.9 2.0 - 8.3 x10*3/uL [facility] Imm Gran Abs Auto 0.04(H) 0.00 - 0.03 X10*3/uL [facility] Lymphocytes Absolute Auto 1.5 1.2 - 4.9 X10*3/uL [facility] Monocytes Absolute Auto 0.5 0.1 - 1.2 X10*3/uL [facility] Eosinophils Absolute Auto 0.1 0.0 - 0.4 X10*3/uL [facility] Basophils Absolute Auto 0.0 0.0 - 0.2 X10*3/uL [facility] NRBC Abs Auto 0.000 0.0 - 0.012 X10*3/uL [facility] 09/28/2025 10:0 6 AM EST 09/28/2025 10:10 AM EST us Generic External Data Provider LAB BLOOD ORDERAB LES Final Result [facility] [address] [place] [address] [phone] * HCG, Qualitative, Urine (09/28/2025 10:06 AM EST) Urine NEGATIVE NEGATIVE [facility] Comment:This test was develo ped to detect early . Falsenegative results may occur after the 5th - 7th week ofpregnancy when using this test method. If clinicallyindicated, consider a serum hCG. 09/28/2025 10:0 6 AM EST 09/28/2025 11:52 AM EST Generic External Data Provider LAB URINE ORDERAB LES Final Result Performing Organization Address [facility] Co de Phone Number [facility] [address] [place] [phone] * Urinalysis w/reflex microscopic (09/28/2025 10:06 AM EST) Color Urine Yellow [facility] Appearance Urine Clear [facility] PH 5.5 5.0 - 9.0 [facility] Glucose Urine UA Negative Negative mg/dL [facility] Urine Blood Negative Negative [facility] Specific [place] - Urine 1.020 1.005 - 1.025 [facility] Urine Protein Negative Neg-Trace mg/dL [facility] Urine Ketones Negative Negative mg/dL [facility] Nitrite Urine Negative Negative [facility] Leukocyte Esterase Urine Negative Negative [facility] 09/28/2025 10:0 6 AM EST 09/28/2025 10:10 AM EST Narrative [facility] - 09/28/2025 10:16 AM EST [id number], Clean Catch Generic External Data Provider LAB URINE ORDERAB LES Final Result Performing Organization Address [facility] Co de Phone Number [facility] [address] [place] [phone] * Lipase (09/28/2025 10:06 AM EST) Lipase 10 8 - 78 U/L [facility] 09/28/2025 10:0 6 AM EST 09/28/2025 10:10 AM EST us Generic External Data Provider LAB BLOOD ORDERAB LES Final Result [facility] [address] [place], [place] [phone] * (ABNORMAL) Comprehensive Metabolic Panel (09/28/2025 10:06 AM EST) Sodium 142 135 - 145 mmol/L [facility] Potassium 3.9 3.3 - 5.1 mmol/L [facility] Chloride 110(H) 96 - 108 mmol/L [facility] Carbon Dioxide 27 22 - 29 mmol/L [facility] Anion Gap 9(L) 12 - 20 [facility] Urea Nitrogen (BUN) 15 9 - 16 mg/dL [facility] Creatinine, Serum 0.76 0.5 - 1.4 mg/dL [facility] Creatinine Clr Calc Pharmacy 74.0 [facility] Comment:Provided height and weight: 144.78 cm,57.8 kg.eGFR (calculated from the MDRD study equation) and eCrCl(calculated from the Cockcroft-Gault equation) are based ondifferent parameters and may not yield comparable results.If eCrCl result is absurd, please check patient'sheight/weight. Estimated Glomerular Filt Rate >60 [facility] Comment:Chronic Kidney Disea se: Estimated GFR < 60 mL/min/1.80c2Nglfyx Kidney Disease: Estimated GFR < 15 mL/min/1.73m2 Glucose 100 60 - 115 mg/dL [facility] Calcium 8.5 8.4 - 10.2 mg/dL [facility] Bilirubin, Total 0.3 0.0 - 1.0 mg/dL [facility] Aspartate Amino Transferase 13 5 - 31 U/L [facility] Alanine Aminotransferase 20 0 - 31 U/L [facility] Total Protein 6.2(L) 6.5 - 8.0 g/dL [facility] Albumin Level 4.0 3.5 - 5.0 g/dL [facility] Alkaline Phosphatase 59 39 - 117 U/L [facility] 09/28/2025 10:0 6 AM EST 09/28/2025 10:10 AM EST us Generic External Data Provider LAB BLOOD ORDERAB LES Final Result Performing Organization Address [facility]/ZIP Co de Phone Number [facility] [address] [place] [phone] [phone] * (ABNORMAL) LIPID PANEL, STANDARD (04/18/2021 2:19 PM EDT) Chol/HDLC Ratio 3.6 <5.0 (calc) [facility] Cholesterol, Total 168 <200 mg/dL [facility] HDL Cholesterol 47(L) > OR = 50 mg/dL [facility] LDL Cholesterol 94 mg/dL (calc) [facility] Comment: Reference range: <100 Desirable range <100 mg/dL for primary prevention; <70 mg/dL for patients with CHD or diabetic patients with > or = 2 CHD risk factors. LDL-C is now calculated using the Jeet-Pearce calculation, which is a validated novel method providing better accuracy than the Friedewald equation in the estimation of LDL-C. Jeet SS et al. DAVION. 2013;310(19): 6342-0684 (http://education.DOOMORO.com/faq/RGF049) Non-HDL Cholesterol 121 <130 mg/dL (calc) [facility] Comment: For patients with diabetes plus 1 major ASCVD risk factor, treating to a non-HDL-C goal of <100 mg/dL (LDL-C of <70 mg/dL) is considered a therapeutic option. Triglycerides 177(H) <150 mg/dL [facility] 04/18/2021 2:19 PM EDT us Andra TONGP LAB BLOOD ORDERABLES Final Res ult [facility] [address] from Last 3 Months or Most Recently Relevant to Health Maintenance [place] [address] [place] [address] STANDARD Care Teams Filling Hauler Relationship Specialty Start Date End Date Ashley Bautista MD [address] [place] [phone] PCP - General Internal Medicine 01/21/24
--- OUTSIDE RECORDS SUMMARY | 2025-09-28 13:06 | XMS_ITS | Encounter Summary ---
Author Organization [employer] Address [address] [facility] 7t [place] [address] Care Team Providers Care Manager Of Community Relations Name Role Phone Valorie Sage Primary Care Provider [phone] Ashley Bautista MD Primary Care Pro vider Reason for Visit * Reason Comments Med Refill Encounter Details Date Type Department Care Team ([facility] st Contact Info) Description 06/22/2023 Refill [facility] [address] [place], [place] [phone] Samina Leyva FNP Muscle spasm Social History Tobacco Use Types Packs/Day Years Used Date Smoking Tobacco: Every Day Cigarettes Smokeless Tobacco: Never Alcohol Use Standard Drinks/Week Comments Not Currently 0 (1 standard drink = 0.6 oz pur e alcohol) Depression Answer Date Recorded Patient Health Questionnaire-9 Score 2 12/30/2022 Depression Answer Date Recorded Patient Health Questionnaire-2 Score 0 12/30/2022 Comments Unknown Sex and Gender Information Value Date Recorded Sex Assigned at Female 09/15/2022 10:14 AM EDT Legal Sex Female 10:14 AM EDT Gender Identity Female 09/15/2022 10:14 AM EDT Sexual Orientation Straight 09/15/2022 10 :14 AM EDT documented as of this encounter Plan of Treatment Not on file documented as of this encounter Visit Diagnoses Diagnosis Muscle spasm Spasm of muscle documented in this encounter Additional Health Concerns Assessment Noted Time PHQ-9 Depression Total Score: 2 12/30/19 23 11:45 AM EST documented as of this encounter Care Teams Manager Of Community Relations Relationship Specialty Start Date End Date Valorie Sage FNP [address] [place], [place] [phone] PCP - General Family Medicine 07/13/22 01/20/24 Ashley Bautista MD [address] [place] [address] PCP - General Internal Medicine 01/21/24 documented as of this encounter
--- OUTSIDE RECORDS SUMMARY | 2025-09-28 13:06 | XMS_ITS | Encounter Summary ---
Author Organization [employer] Address [address] [facility] 7t [place] [address] Care Team Providers Care Leaf Fat Scraper Name Role Phone Valorie Sage Primary Care Provider [phone] Ashley Bautista MD Primary Care Pro vider Reason for Visit * Reason Comments Med Change Request Encounter Details Date Type Department Care Team ([facility] [address] Contact Info) Description 05/15/2023 Refill [facility] [address] [place] [address] Valorie Sage FNP [address] [place] [address] Right elbow pain Social History Tobacco Use Types Packs/Day Years [...] as of this encounter Visit Diagnoses Diagnosis Right elbow pain Pain in joint, upper arm documented in this encounter Additional Health Concerns Assessment Noted Time PHQ-9 Depression Total Score: 2 12/30/19 23 11:45 AM EST documented as of this encounter Care Teams Leaf Fat Scraper Relationship Specialty Start Date End Date Valorie Sage FNP [address] [place] [address] PCP - General Family Medicine 07/13/22 01/20/24 Ashley Bauitsta MD [address] [place] [address] PCP - General Internal Medicine 01/21/24 documented as of this encounter
--- OUTSIDE RECORDS SUMMARY | 2025-09-28 13:06 | XMS_ITS | Encounter Summary ---
Author Organization [employer] Address [address] [facility] 7t [place] [address] Care Team Providers Care Retail Pharmacy Technician Name Role Phone Valorie Sage Primary Care Provider [phone] Ashley Bautista MD Primary Care Pro vider Reason for Visit * Reason Comments Med Refill Encounter Details Date Type Department Care Team ([facility] Contact Info) Description 12/12/2022 Refill [facility] [address] [place] [address] Valorie Sage FNP [address] [place] [address] Social History Tobacco Use Types Packs/Day Years [...] on filedocumented in this encounter Care Teams Retail Pharmacy Technician Relationship Specialty Start Date End Date Valorie Sage FNP [address] [place] [address] PCP - General Family Medicine 07/13/22 01/20/24 Ashley Bautista MD [address] [place] [address] PCP - General Internal Medicine 01/21/24 documented as of this encounter
--- OUTSIDE RECORDS SUMMARY | 2025-09-28 13:07 | XMS_ITS | Encounter Summary ---
Author Organization [employer] Address [address] [facility] 7 [place] [address] Care Team Providers Care Machine Folder Name Role Phone Ashley Bautista MD Primary Care Pro vider Reason for Visit * Reason Comments Med Refill Encounter Details Date Type Department Care Team ([facility] st Contact Info) Description 06/14/[address] [facility] [address] [place] [address] Ashley Bautista MD [address] [place] [address] Right elbow pain; Sleeping difficulties Social History Tobacco Use Types Packs/Day Years Used Date Smoking Tobacco: Every Day Cigarettes Smokeless Tobacco: Never Alcohol Use Standard Drinks/Week Comments Not Currently 0 (1 standard drink = 0.6 oz pur e alcohol) Depression Answer Date Recorded Patient Health Questionnaire-9 Score 2 12/30/2022 Housing Stability Answer Date Recorded What is your housing situation today? I have galimery tiwari 09/08/[address] you li ve. Do you have problems with any of the following? None of the above 09/08/2023 Food Insecurity Answer Date Recorded Within the past 12 months, y ou worried that your food would run out before you got money to buy more: Never True 09/08/2023 Within the past 12 months,th e food you bought just didn't last and you didn't have enough money to get more: Never True Transportation Answer Date Recorded In the past 12 months, has l ack of transportation kept you from medical appts, meetings, work or from getting things needed for daily living? No 09/08/2023 Utilities Answer Date Recorded In the past 12 months, has t he electric, gas, oil or water company threatened to shut off services in your home? No 09/08/2023 Depression Answer Date Recorded Patient Health Questionnaire-2 [...] elbow pain Pain in joint, upper arm Sleeping difficulties documented in this encounter Additional Health Concerns Assessment Noted Time PHQ-9 Depression Total Score: 2 12/30/19 23 11:45 AM EST documented as of this encounter Care Teams Machine Folder Relationship Specialty Start Date End Date Ashley Bautista MD [address] [place] [phone] PCP - General Internal Medicine 01/21/24 documented as of this encounter
--- OUTSIDE RECORDS SUMMARY | 2025-09-28 13:07 | XMS_ITS | Encounter Summary ---
Author Organization [employer] Address [address] [facility] 7t [place] [address] Care Team Providers Care Traffic Rate Analyst Name Role Phone Ashley Bautista MD Primary Care Pro vider Reason for Visit * Reason Comments Med Refill Encounter Details Date Type Department Care Team ([facility] st Contact Info) Description 10/14/2024 Refill [facility] [address] [place] [address] Ashley Bautista MD [address] [place] [address] Muscle spasm Social History Tobacco Use Types [...] documented as of this encounter Care Teams Traffic Rate Analyst Relationship Specialty Start Date End Date Ashley Bautista MD [address] [place] [phone] PCP - General Internal Medicine 01/21/24 documented as of this encounter
--- OUTSIDE RECORDS SUMMARY | 2025-09-28 13:07 | XMS_ITS | Encounter Summary ---
Author Organization [employer] Address [address] [facility] 7 [place] [address] Care Team Providers Care Information Clerk [employer] Name Role Phone Ashley Bautista MD Primary Care Pro vider Reason for Visit * Reason Comments Med Change Request Encounter Details Date Type Department Care Team ([facility] st Contact Info) Description 04/11/2025 Refill [facility] [address] [place] [address] Ashley Bautista MD [address] [place] [address] Right elbow pain; Sleeping difficulties Social History [...] documented as of this encounter Care Teams Information Clerk [employer] Relationship Specialty Start Date End Date Ashley Bautista MD [address] [place] [id number] PCP - General Internal Medicine 01/21/24 documented as of this encounter
--- OUTSIDE RECORDS SUMMARY | 2025-09-28 13:07 | XMS_ITS | Encounter Summary ---
Author Organization [employer] Address [address] [facility] 7t [place] [address] Care Team Providers Care Test Engineer [employer] Name Role Phone Valorie Sage Primary Care Provider [phone] Ashley Bautista MD Primary Care Pro vider Encounter Details Date Type Department Care Team ([facility] st Contact Info) Description 02/02/2023 Orders Only [facility] MED[facility]INE [address] [place] [address] Valorie Sage FNP [address] [place], [place] [id number] Social History Tobacco Use Types Packs/Day Years [...] documented as of this encounter Care Teams Test Engineer [employer] Relationship Specialty Start Date End Date Valorie Sage FNP [address] [place] [address] PCP - General Family Medicine 07/13/22 01/20/24 Ashley Bautista MD [address] [place] [address] [place] [id number] PCP - General Internal Medicine 01/21/24 documented as of this encounter
--- OUTSIDE RECORDS SUMMARY | 2025-09-28 13:07 | XMS_ITS | Encounter Summary ---
Author Organization [employer] Address [address] [facility] 7[address] [place] [address] Care Team Providers Care Software Clerk Name Role Phone Valorie Sage Primary Care Provider Ashley Bautista MD Primary Care Pro vider Reason for Visit * Reason Onset Date Comments triage 02/02/2023 Encounter Details Date Type Department Care Team ([facility] st Contact Info) Description 02/02/2023 Telephone [facility] [address] [place] [address] Valorie Sage FNP [address] [place] [address] triage Social History Tobacco Use Types Packs/Day Years [...] AM EDT documented as of this encounter Miscellaneous Notes * Telephone Encounter - Manju Avitia RN - 02/02/2023 4:53 PM EDT Triage call Pt reports that voice has had hoarseness and sore throat for last 2 months. Voice becomes hoarse frequently. Pt reports the sore throat is past the tonsils in the back of the throat. Pt also has trouble sleeping and is sporadic at getting 8 hours. Pt has tried home remedies, salt gargle, ricola cough lozenges, throat teas and drinks adequate liquids. Neg for fever and other cold symptoms. Advised Pt to come to [facility] today but, Pt has no transportation. Pt will come to [facility] tomorrow viabus. home care reviewed. Protocol Used: Sore Throat (Adult) Protocol-Based Disposition: Strep Test Only Visit Today or Tomorrow Video visit not offered Positive Triage Question: * Sore throat is main symptom and persists > 48 hours * All higher-acuity triage questions were negative Care Advice Discussed: * For Relief of Sore Throat Pain * Pain and Fever Medicines * Pain and Fever Medicines - Extra Notes and Warnings * Soft Diet * Drink Plenty of Liquids * Contagiousness * Expected Course * Reasons To Call Back - Sore throat is the main symptom and it lasts longer than 48 hours - Sore throat is mild but lasts longer than 4 days - Fever lasts longer than 3 days - You become worse * Telephone Encounter - Tino Cavanaugh - 02/02/2023 4:40 PM EDT Symptom: Sore Throat Outcome: Schedule an urgent appointment (within 1 hour) or talk to a nurse or provider soon Reason: Any trouble breathing through the mouth The caller accepted this outcome documented in this encounter Plan of Treatment Not on file documented as of this encounter Visit Diagnoses Not on filedocumented in this encounter Additional Health Concerns Assessment Noted Time PHQ-9 Depression Total Score: 2 12/30/19 23 11:45 AM EST documented as of this encounter Care Teams Software Clerk Relationship Specialty Start Date End Date Valorie Sage FNP [address] [place] [address] PCP - General Family Medicine 07/13/22 01/20/24 Ashley Bautista MD [address] [place] [address] PCP - General Internal Medicine 01/21/24 documented as of this encounter
[2025-09-28 13:47] VITALS: BP 118/68; PULSE 58; TEMP 36.5; O2SAT 100
--- NOTE | 2025-09-28 14:03 | PC.NURSE ---
pt woke up and is reporting pain at 10/10 again, md aware
[2025-09-28] MEDS: oxyCODONE HCl Immed Release 5 MG TABLET PO (14:22)
[2025-09-28 15:19] VITALS: BP 118/68; PULSE 58; RESP 18; TEMP 36.5; O2SAT 100
== END 2025-09-28 15:20 | disposition home or self-care (01) ==
PROVIDERS: Emergency Provider Emergency Medicine
DX: R10.A2 Flank pain, left side (principal); R25.2 Cramp and spasm; R11.0 Nausea; Z79.899 Other long term (current) drug therapy
CPT/HCPCS: 36415; 74176; 80053; 81003; 81025; 83690; 85025; 96361; 96374; 99285; J1885

== ENCOUNTER → 2025-09-28 11:34 | Outpatient (BNV) | payer MEDICAID, SELFPAY | PROVIDERS: Emergency Provider Emergency Medicine; Visit Provider Radiology Diagnostic Radiology | DX: R10.A2 Flank pain, left side (principal) | CPT/HCPCS: 74176 ==